=== PATIENT | male | born 1940 | race Caucasian/White ===

== ENCOUNTER → 2023-12-12 11:31 | Outpatient (REF) | payer BC, SELFPAY | LOC: HWRAD 11:31 | PROVIDERS: ATTENDING PHYSICIAN Physician Assistant Medical; FAMILY PHYSICIAN Family Medicine | DX: R10.32 Left lower quadrant pain (principal); G89.29 Other chronic pain; M54.50 Low back pain, unspecified | CPT/HCPCS: 72110; 73502 ==

== ENCOUNTER → 2024-01-31 11:10 | Outpatient (REF) | payer BC, SELFPAY ==
[2024-01-31 10:57] LABS: % Basophils 0.2 % (0-2); % Eosinophils 0.4 % (0-6); % Immature Granulocytes 0.1 % (0-0.5); % Lymphocytes 13.3 % (20.5-51.1); Absolute Lymphocytes 1.3 10^3/uL (1.2-3.4); Absolute Monocytes 0.8 10^3/uL (0.1-0.6); Absolute Neutrophils 7.4 10^3/uL (1.4-6.5); Hematocrit 33.3 % (39.0-52.0); Mean Corpuscular Hgb 28.6 pg (27.0-31.0); Mean Corpuscular Volume 86.7 fL (80.0-94.0); Mean Platelet Volume 8.9 fL (7.4-10.4); Platelet Count 374 10^3/uL (130-400); Red Blood Cell Count 3.84 10^6/uL (4.70-6.10); White Blood Cell Count 9.5 10^3/uL (4.8-10.8)
== END ==
LOC: OIDL 11:10
PROVIDERS: ATTENDING PHYSICIAN Registered Nurse
DX: D50.9 Iron deficiency anemia, unspecified (principal)
CPT/HCPCS: 85025

== ENCOUNTER → 2024-02-29 07:05 | Outpatient (REF) | payer BC, SELFPAY | LOC: MRI 07:05 | PROVIDERS: ATTENDING PHYSICIAN Physical Medicine & Rehabilitation; FAMILY PHYSICIAN Family Medicine | DX: M54.16 Radiculopathy, lumbar region (principal); M25.552 Pain in left hip | CPT/HCPCS: 72148; 73721 ==

== ENCOUNTER → 2024-05-24 11:05 | Outpatient (REF) | payer BC, SELFPAY | LOC: HWRAD 11:05 | PROVIDERS: ATTENDING PHYSICIAN Hospitalist; FAMILY PHYSICIAN Family Medicine | DX: M35.3 Polymyalgia rheumatica (principal); Z79.52 Long term (current) use of systemic steroids | CPT/HCPCS: 77080 ==

== ENCOUNTER → 2024-05-30 16:25 | Outpatient (REF) | payer BC, SELFPAY | LOC: HWRAD 16:25 | PROVIDERS: ATTENDING PHYSICIAN Hospitalist; FAMILY PHYSICIAN Family Medicine | DX: J18.9 Pneumonia, unspecified organism (principal) | CPT/HCPCS: 71046 ==

== ENCOUNTER 2024-06-03 16:24 | Inpatient (IN) | payer MEDICARE, BC, SELFPAY ==
[2024-06-03] VITALS (10 sets, daily range): BP systolic 102–154; BP diastolic 49–94; PULSE 86–94; BMI 24.0; BMI 23.0
[2024-06-03 11:36] LABS: % Basophils 0.4 % (0-2); % Eosinophils 0.8 % (0-6); % Immature Granulocytes 0.9 % (0-0.5); % Lymphocytes 5.5 % (20.5-51.1); % Monocytes 7.5 % (1.7-9.3); % Neutrophils 84.9 % (42.2-75.2); Absolute Eosinophils 0.1 10^3/uL (0-0.7); Absolute Immature Granulocytes 0.1 10^3/uL (0-0.05); Absolute Lymphocytes 0.6 10^3/uL (1.2-3.4); Absolute Monocytes 0.8 10^3/uL (0.1-0.6); Absolute Neutrophils 8.9 10^3/uL (1.4-6.5); Hematocrit 36.8 % (39.0-52.0); Hemoglobin 13.1 g/dL (13.0-18.0); Mean Corp Hgb Conc. 35.6 g/dL (33.0-37.0); Mean Corpuscular Hgb 29.8 pg (27.0-31.0); Mean Corpuscular Volume 83.6 fL (80.0-94.0); Mean Platelet Volume 9.5 fL (7.4-10.4); Nucleated Red Blood Cells % 0 % (-); Platelet Count 237 10^3/uL (130-400); Red Cell Dist. Width 15.3 % (11.5-14.5); White Blood Cell Count 10.5 10^3/uL (4.8-10.8)
[2024-06-03 11:53] LABS: Blood Urea Nitrogen 29 mg/dl (9-20); Calcium 9.3 mg/dl (8.4-10.2); Carbon Dioxide 18 mmol/L (22-30); Chloride 103 mmol/L (98-107); Glucose 194 mg/dl (70-99); Sodium 133 mmol/L (135-145); eGFR > 60.00
--- NOTE | 2024-06-03 12:12 | ED.GENMED ---
History of Present Illness
General
Chief Complaint: Breathing Problem
Time Seen by Provider: 06/03/24 11:41
History of Present Illness
History of Present Illness:
84-year-old male with history of paroxysmal atrial fibrillation and pulmonary fibrosis presents to the emergency department for evaluation of shortness of breath. He has had postnasal drip and a minimally productive cough over the past 3 weeks but
feels the symptoms are getting worse. Daughter reports that he was profoundly short of breath yesterday as well as this morning. He does have a home pulse oximeter that has been reading in the 80s. Denies any chest pain or leg swelling.
Past History
Past History
ED Past Medical History: Arrthythmia (Atrial fibrillation), HTN, Hypercholesterolemia and NIDDM
ED Past Surgical History: Other (Ablation for A. fib)
Social History
Tobacco: Non-smoker
Alcohol: None
Drug: None
Personal:
Review of Systems
Review of Systems
Allergies reviewed?: Yes
All Other Systems: ROS reviewed and negative except as documented in HPI and ROS
Phy Exam
Physical Exam
Physical Exam:
GEN: Well appearing, NAD, WDWN
Eyes: PERRLA, EOMs intact, no scleral icterus
HENT: NCAT, oral mucosa moist, no JVD, no cervical adenopathy.
Lungs: Normal respiratory effort, faint interstitial crackles at the bases bilaterally.
Cardiac: RRR, no M/R/G, no peripheral edema. Radial pulses 2+ bilat
Abdomen: S, NT, ND, NABS, no masses or hepatosplenomegaly
Neuro: AO x 3
MSK: No gross deformity or ecchymosis. No edema. No digital clubbing
Skin: No rashes, petechiae. Normal color, no pallor or jaundice.
Psych: Calm, cooperative, proper hygiene
Scores
Heart Failure Risk
Heart Failure Risk Score: Not Applicable
Course
Orders/Labs/Results
Orders:
Orders
06/03/24 11:27
Basic Metabolic Panel Urgent
Complete Blood Count/With Diff Urgent
06/03/24 12:05
CR Chest - 2 Views Urgent
Comment:
Reason For Exam: SOB/hypoxia
06/03/24 13:32
Azithromycin 500 mg/250 ml [Zithromax Infusion] 500 mg in 250 ml IV NOW
Dexamethasone Sod Phosphate [Decadron] 6 mg IV NOW STA
06/03/24 13:39
CMP [Comprehensive Metabolic Panel] Urgent
COVID-19 Antigen Urgent
Source: Nasal Swab
Procalcitonin Urgent
PCT Algorithmm Indication: Respiratory
Influenza A+B Rapid Molecular Urgent
JEWELL Source: Nasal Swab
Specimen Description:
06/03/24 13:48
Azithromycin 500 mg/250 ml [Zithromax Infusion] 500 mg in 250 ml IV NOW
06/03/24 15:41
Admit/Transfer Patient As Directed
Co-Sign Provider:
Level of Care: Inpatient admission
Assign to:: Medical/Surgical
Physician / Group: sean
Diagnosis: pneumonia
Reason for Hospitalization: pneumonia
Expected length of stay greater than two midnights?: Yes
ELOS- Estimated Length of Stay in days: 2
I certify the patient meets the requirements for IP care: Yes
06/03/24 15:42
Code Status As Directed
Resuscitation Status: Full Code
PRN Pain Medication Management As Directed
May give lesser potent ordered pain med per pt: Yes
preference::
Protocol:: Medication orders for pain may be administered in a
manner that supports deferring to patient preference
when the pt is:
- Requesting an ordered lesser potent pain medication.
Least to most potent pain medications are defined
as: acetaminophen < NSAID < tramadol < opioids
(morphine, oxycodone, hydromorphone).
- Requesting a lesser dose of the same medication IF
ORDERED.
- Requesting a less intrusive route of administration
if both routes are prescribed by the provider (PO <
IV).
06/03/24 15:45
Sputum Culture [Respiratory Culture/Gram Stain] Urgent
JEWELL Source: Sputum
Specimen Description:
06/03/24 15:46
Code Status As Directed
Resuscitation Status: Do not resuscitate
Reached after discussion with pt or family/Healthcare POA: Yes
06/03/24 15:47
DNR Bracelet Application ONCE
Abnormal Lab Results
06/03/24 06/03/24
11:27 13:39
RBC 4.40 L 10^6/uL
(4.70-6.10)
Hct 36.8 L %
(39.0-52.0)
RDW 15.3 H %
(11.5-14.5)
Abs Immat Gran (auto) 0.1 H 10^3/uL
(0-0.05)
Absolute Neuts (auto) 8.9 H 10^3/uL
(1.4-6.5)
Absolute Lymphs (auto) 0.6 L 10^3/uL
(1.2-3.4)
Absolute Monos (auto) 0.8 H 10^3/uL
(0.1-0.6)
Immature Gran % 0.9 H %
(0-0.5)
Neutrophils % 84.9 H %
(42.2-75.2)
Lymphocytes % 5.5 L %
(20.5-51.1)
Sodium 133 L mmol/L
(135-145)
Carbon Dioxide 18 L mmol/L
(22-30)
BUN 29 H mg/dl 29 H mg/dl
(9-20) (9-20)
Glucose 194 H mg/dl 181 H mg/dl
(70-99) (70-99)
Total Protein 5.3 L g/dl
(6.3-8.2)
Albumin 3.1 L g/dl
(3.5-5.0)
06/03/24 11:27
06/03/24 13:39
Vital Signs
Initial and Last Documented VS:
Initial Vital Signs
Temp Pulse BP Pulse Ox
98 F 88 129/61 89
06/03/24 11:14 06/03/24 11:14 06/03/24 11:14 06/03/24 11:14
Last Documented Vital Signs
Temp Pulse Resp BP Pulse Ox
98 F 77 17 108/49 92
06/03/24 11:14 06/03/24 15:30 06/03/24 15:30 06/03/24 15:00 06/03/24 15:30
MDM/Problems Addressed
MDM/Problems Addressed:
Chest x-ray independently interpreted by me suspicious for bilateral infiltrates that are increased compared to prior chest x-ray. This raises concern for potential atypical or viral pneumonia. He does not appear to be volume overloaded to suggest
CHF and there is no wheezing to suggest a pulmonary fibrosis exacerbation. Will start the patient on empiric IV antibiotics and admit to the hospitalist service
*Critical Care Note
Total Time (30-74mins, 75-104mins- exclusive of procedures): Not Applicable
ED Attending Note
-
Portions of this chart may have been created with voice recognition software.� Occasional wrong word or��sound alike� substitutions may have occurred due to the inherent limitations of voice recognition software.
Discharge Plan
Departure
Patient Disposition: Admit
Date of Disposition: 06/03/24
Time of Disposition: 14:30
Admit to: Med/Surg
Presentation/result/management discussed w/ accepting MD/DO: Hospitalist
Discharge Problem:
Pneumonia, Acute hypoxemic respiratory failure
Interventions
Interventions:
*Risk Screen - Suicide Last Done: 06/03/24 13:25
*General Assessment Last Done: 06/03/24 13:25
*Neglect/Abuse Screening Last Done: 06/03/24 13:25
ED- Fall Risk Assessment Last Done: 06/03/24 13:25
*ED COVID-19 Vaccine History Last Done: 06/03/24 13:25
ED- Cardiac Assessment Last Done: 06/03/24 13:25
ED- Pulmonary Assessment Last Done: 06/03/24 13:25
[2024-06-03] MEDS: DECADRON 6 MG IV (13:56)
[2024-06-03] MEDS: ZITHROMAX INFUSION 250 IV (13:58)
[2024-06-03 14:16] LABS: ALT (SGPT) 18 U/L (0-50); AST (SGOT) 27 U/L (17-59); Albumin 3.1 g/dl (3.5-5.0); Alkaline Phosphatase 56 U/L (38-126); Blood Urea Nitrogen 29 mg/dl (9-20); Calcium 9.1 mg/dl (8.4-10.2); Carbon Dioxide 23 mmol/L (22-30); Chloride 103 mmol/L (98-107); Estimated Creatinine Clearance 69 ml/min; Glucose 181 mg/dl (70-99); Potassium 4.9 mmol/L (3.5-5.1); Sodium 136 mmol/L (135-145); Total Bilirubin 0.6 mg/dl (0.2-1.3); Total Protein 5.3 g/dl (6.3-8.2); eGFR > 60.00
[2024-06-03 14:17] LABS: COVID-19 Antigen Negative (Negative)
[2024-06-03 14:33] LABS: Procalcitonin 0.06 ng/ml (0.0-0.25)
--- NOTE | 2024-06-03 15:48 | HPS.HSE ---
Family Physician
-
Family Physician: Martin Carmen
Chief Complaint
-
cough, SOB
History of Present Illness
84-year-old male past medical history of pulmonary fibrosis, paroxysmal atrial fibrillation status post ablation, hypertension, hypercholesteremia, diabetes, polymyalgia rheumatica presenting with persistent productive cough for the past 3 weeks
associate with some shortness of breath. Symptoms were particularly worse over the past 1 to 2 days. Pulse ox was 86%. He had fever of 100 in the last week but denies any chills. Denies any chest pain. Denies any nausea vomiting or diarrhea.
He is a former smoker. Denies alcohol.
Medical History
Past Medical History
Past Medical History: Reports Other (pulmonary fibrosis, paroxysmal atrial fibrillation status post ablation, hypertension, hypercholesteremia, diabetes, polymyalgia rheumatica)
Past Surgical History: Reports Other (Ablation)
Social History
Tobacco: Former Smoker
Alcohol: None
Drug: None
Family History
Family History: Not pertinent
Allergies / Home Medications
Allergies reflects when Allergies were last updated in [facility].
Home Medications with original date entered in [facility]
Allergy/Medication List:
Allergies
Allergy/AdvReac Type Severity Reaction Status Date / Time
Penicillins Allergy Unknown Verified 03/12/22 18:39
Home Medications
acetaminophen 325 mg tablet (Tylenol) 650 mg PO QIDPRN PRN fever 06/03/24
cholecalciferol (vitamin D3) 25 mcg (1,000 unit) tablet (Vitamin D3) 25 mcg PO DAILY 06/03/24
dofetilide 500 mcg capsule 500 mcg PO BID 06/03/24
famotidine 40 mg tablet (Pepcid) 40 mg PO HS 06/03/24
finasteride 5 mg tablet 5 mg PO DAILY 06/03/24
guaifenesin 600 mg tablet, extended release 12 hr (Mucinex) 600 mg PO BIDPRN PRN cough 06/03/24
lisinopril 5 mg tablet 5 mg PO BID 06/03/24
metformin 500 mg tablet 500 mg PO BID 06/03/24
omeprazole 40 mg capsule,delayed release 40 mg PO DAILY 06/03/24
polyethylene glycol 3350 17 gram oral powder packet (Miralax) 17 g PO DAILYPRN PRN constipation 06/03/24
pravastatin 40 mg tablet 40 mg PO HS 06/03/24
prednisone 10 mg tablet 12.5 mg PO DAILY 06/03/24
rivaroxaban 20 mg tablet (Xarelto) 20 mg PO QPM 06/03/24
tamsulosin 0.4 mg capsule (Flomax) 0.4 mg PO DAILY 06/03/24
trazodone 50 mg tablet 50 mg PO HS 06/03/24
Review of Systems
-
History Source: Patient
A 12 point ROS was completed and negative except as noted: Yes
Constitutional: Reports No Symptoms
EENT: Reports No Symptoms
Respiratory: Reports See HPI
Cardiac: Reports No Symptoms
Abdomen/GI: Reports No Symptoms
: Reports No Symptoms
Musculoskeletal: Reports No Symptoms
Skin: Reports No Symptoms
Neurological: Reports No Symptoms
Endocrine: Reports No Symptoms
Hematologic/Lymphatic: Reports No Symptoms
Psych: Reports No Symptoms
Physical Exam
Vital Signs
Vital Signs
Temp Pulse Resp BP Pulse Ox
98 F 96 23 119/68 93
06/03/24 11:14 06/03/24 14:00 06/03/24 14:00 06/03/24 14:00 06/03/24 13:45
Physical Exam
General: Well Developed, Well Nourished and No Apparent Distress
HEENT: NormoCephalic, Moist mucous membranes and Atraumatic
Respiratory: Clear
Cardiac: S1/S2 and Regular Rhythm; No Murmur or Rub
GI: Soft, Non Tender, Non Distended and Normal Bowel Sounds; No Organomegaly
Rectal: Deferred by Provider
Musculoskeletal: No Clubbing, No Cyanosis and No Edema
Skin: No Rash
Neuro: Nonfocal/grossly intact
Laboratory Results
-
06/03/24 11:27
06/03/24 13:39
Laboratory Results
Total Bilirubin 0.6 mg/dl (0.2-1.3) 06/03/24 13:39
AST 27 U/L (17-59) 06/03/24 13:39
ALT 18 U/L (0-50) 06/03/24 13:39
Alkaline Phosphatase 56 U/L (38-126) 06/03/24 13:39
Data Reviewed
-
Lab Data: Labs Reviewed by me
Old Records: Reviewed
Impression/Plan
-
IMPRESSION:
PLAN:
# Right basilar pneumonia
-COVID-negative
-Check sputum culture
-Ceftriaxone/doxycycline
-Continue guaifenesin
Mild pulmonary fibrosis
-Does not use oxygen at home
Paroxysmal atrial fibrillation status post ablation
-Continue dofetilide
-Continue Xarelto
Coronary artery disease
Obstructive sleep apnea
Essential hypertension
-Continue lisinopril
Hypercholesterolemia
-Continue statin
Type 2 diabetes
-Continue metformin
BPH
-Continue finasteride
Polymyalgia rheumatica
-Continue prednisone taper
Insomnia
-Continue trazodone
DNR/DNI
DVT prophylaxis�heparin
Regular diet
[2024-06-03] MEDS: XARELTO 20 MG PO (19:30)
[2024-06-03] MEDS: GLUCOPHAGE 500 MG PO (19:30)
[2024-06-03] MEDS: TIKOSYN 500 MCG PO (19:31)
[2024-06-03] MEDS: ZESTRIL 5 MG PO (19:31)
--- NOTE | 2024-06-03 20:00 | PTCARENOTE ---
Patient is on Xarelto, there is order for heparin SQ due at 1999. DAISY Lott made aware. New order to d/c heparin .
[2024-06-03] MEDS: ROCEPHIN 1000 MG IV (20:01)
[2024-06-03] MEDS: STERILE WATER FOR INJECTION 10 ML IV (20:01)
[2024-06-03] MEDS: VIBRAMYCIN 260 MG IV (20:02)
[2024-06-03 21:30] LABS: Glucose - Point of Care 265 mg/dl (70-99)
[2024-06-03] MEDS: DESYREL 50 MG PO (22:36)
[2024-06-03] MEDS: PRAVACHOL 40 MG PO (22:36)
[2024-06-03] MEDS: PEPCID 40 MG PO (22:36)
[2024-06-04] VITALS (8 sets, daily range): BP systolic 114–160; BP diastolic 68–91; PULSE 81; O2SAT 94
[2024-06-04 05:41] LABS: % Basophils 0.2 % (0-2); % Immature Granulocytes 0.7 % (0-0.5); % Lymphocytes 8.4 % (20.5-51.1); % Monocytes 7.8 % (1.7-9.3); % Neutrophils 82.9 % (42.2-75.2); Absolute Immature Granulocytes 0.1 10^3/uL (0-0.05); Absolute Lymphocytes 0.8 10^3/uL (1.2-3.4); Absolute Monocytes 0.8 10^3/uL (0.1-0.6); Absolute Neutrophils 8.2 10^3/uL (1.4-6.5); Hematocrit 34.3 % (39.0-52.0); Hemoglobin 11.6 g/dL (13.0-18.0); Mean Corp Hgb Conc. 33.8 g/dL (33.0-37.0); Mean Corpuscular Hgb 28.5 pg (27.0-31.0); Mean Corpuscular Volume 84.3 fL (80.0-94.0); Mean Platelet Volume 9.3 fL (7.4-10.4); Nucleated Red Blood Cells % 0 % (-); Platelet Count 323 10^3/uL (130-400); Red Blood Cell Count 4.07 10^6/uL (4.70-6.10); Red Cell Dist. Width 15.2 % (11.5-14.5); White Blood Cell Count 9.9 10^3/uL (4.8-10.8)
[2024-06-04 05:58] LABS: ALT (SGPT) 17 U/L (0-50); AST (SGOT) 23 U/L (17-59); Albumin 2.9 g/dl (3.5-5.0); Alkaline Phosphatase 57 U/L (38-126); Blood Urea Nitrogen 24 mg/dl (9-20); Calcium 9.3 mg/dl (8.4-10.2); Carbon Dioxide 22 mmol/L (22-30); Chloride 105 mmol/L (98-107); Estimated Creatinine Clearance 77 ml/min; Glucose 151 mg/dl (70-99); Potassium 4.7 mmol/L (3.5-5.1); Sodium 139 mmol/L (135-145); Total Bilirubin 0.4 mg/dl (0.2-1.3); Total Protein 5.2 g/dl (6.3-8.2); eGFR > 60.00
[2024-06-04] MEDS: DELTASONE 12.5 MG PO (07:16)
[2024-06-04] MEDS: FLOMAX 0.4 MG PO (07:19)
[2024-06-04] MEDS: PROTONIX 40 MG PO (07:19)
[2024-06-04] MEDS: GLUCOPHAGE 500 MG PO ×2 (07:19→17:47)
[2024-06-04] MEDS: TIKOSYN 500 MCG PO ×2 (07:20→20:23)
[2024-06-04] MEDS: VITAMIN D3 (cholecalciferol) 25 MCG PO (07:20)
[2024-06-04] MEDS: ZESTRIL 5 MG PO ×2 (07:20→20:24)
[2024-06-04] MEDS: PROSCAR 5 MG PO (07:20)
[2024-06-04] MEDS: VIBRAMYCIN 260 MG IV (08:35)
[2024-06-04 10:02] LABS: NT-proBNP 307 pg/ml
--- NOTE | 2024-06-04 11:45 | CM ---
CM met with pt and son/Jason bedside
Pt resides with his spouse in a [place] in [place] community
1STE and first floor setup
Pt is independent with his ADLs- has a quad cane and WW for use as needed
Does not have home oxygen at baseline
PCP- Martin Carmen
Rx- [facility]
Pt currently on O2
Requested PT/OT orders once appropriate
Discharge Disposition- anticipate home, watch for VN/O2 needs
--- NOTE | 2024-06-04 12:43 | W.PN.HOSP.TC ---
Today's Communication/Plan
-
Monitor vital signs see plan
Wean oxygen as tolerated
Consider CT scan if symptoms does not improve
Continue antibiotics
Follow cultures
Assessment / Plan
Assessment / Plan
General: Well Developed, Well Nourished and No Apparent Distress
HEENT: NormoCephalic, Moist mucous membranes and Atraumatic
Respiratory: Clear
Cardiac: S1/S2 and Regular Rhythm; No Murmur or Rub
GI: Soft, Non Tender, Non Distended and Normal Bowel Sounds
Musculoskeletal: No Clubbing, No Cyanosis and No Edema
Skin: No Rash
Neuro: Nonfocal/grossly intact
Right basilar pneumonia
Acute hypoxic respiratory failure likely secondary to above
-COVID-negative,flyu neg; check legionella
-Check sputum culture
-cw Ceftriaxone/doxycycline
-Continue guaifenesin
If oxygenation does not improve then will need pulmonary evaluation
Consider CT scan if does not improve
Mild pulmonary fibrosis
-Does not use oxygen at home
Paroxysmal atrial fibrillation status post ablation
-Continue dofetilide
-Continue Xarelto
Coronary artery disease
Obstructive sleep apnea
Essential hypertension
-Continue lisinopril
Hypercholesterolemia
-Continue statin
Type 2 diabetes
-Continue metformin
BPH
-Continue finasteride
Polymyalgia rheumatica
-Continue prednisone taper
Insomnia
-Continue trazodone
DNR/DNI
DVT prophylaxis�heparin
Anticipated Discharge: 24 - 48 hours
Subjective/Interval History
-
Date of Service: June 04, 2024
denies pain
Objective Data
-
Labs:
Laboratory Results
06/04/24
05:16
WBC 9.9
Hgb 11.6 L
Hct 34.3 L
Plt Count 323 D
Sodium 139
Potassium 4.7
Chloride 105
Carbon Dioxide 22
BUN 24 H
Creatinine 0.8
Glucose 151 H
Calcium 9.3
Total Bilirubin 0.4
AST 23
ALT 17
Alkaline Phosphatase 57
Vital Signs:
Vital Signs
Temp Pulse Resp BP Pulse Ox
97.5 F 83 16 127/68 93
06/04/24 11:11 06/04/24 11:11 06/04/24 11:11 06/04/24 11:11 06/04/24 11:11
I&O
06/03/24 06/04/24 06/05/24
06:59 06:59 06:59
Intake Total 730 / 730
Output Total 1100 / 1100
Balance -370 / -370
[2024-06-04] MEDS: XARELTO 20 MG PO (17:47)
[2024-06-04] MEDS: VIBRAMYCIN 100 MG PO (20:24)
[2024-06-04] MEDS: STERILE WATER FOR INJECTION 10 ML IV (20:24)
[2024-06-04] MEDS: ROCEPHIN 1000 MG IV (20:24)
[2024-06-04] MEDS: PRAVACHOL 40 MG PO (22:21)
[2024-06-04] MEDS: DESYREL 50 MG PO (22:21)
[2024-06-04] MEDS: PEPCID 40 MG PO (22:22)
[2024-06-05] VITALS (7 sets, daily range): BP systolic 115–162; BP diastolic 61–88; PULSE 84; O2SAT 94
[2024-06-05 05:36] LABS: % Basophils 0.3 % (0-2); % Eosinophils 1.7 % (0-6); % Immature Granulocytes 0.4 % (0-0.5); % Lymphocytes 13.7 % (20.5-51.1); % Monocytes 9.2 % (1.7-9.3); % Neutrophils 74.7 % (42.2-75.2); Absolute Eosinophils 0.2 10^3/uL (0-0.7); Absolute Immature Granulocytes 0.1 10^3/uL (0-0.05); Absolute Lymphocytes 1.6 10^3/uL (1.2-3.4); Absolute Monocytes 1.1 10^3/uL (0.1-0.6); Absolute Neutrophils 8.6 10^3/uL (1.4-6.5); Hematocrit 36.6 % (39.0-52.0); Hemoglobin 12.2 g/dL (13.0-18.0); Mean Corp Hgb Conc. 33.3 g/dL (33.0-37.0); Mean Corpuscular Hgb 29.5 pg (27.0-31.0); Mean Corpuscular Volume 88.4 fL (80.0-94.0); Nucleated Red Blood Cells % 0 % (-); Platelet Count 335 10^3/uL (130-400); Red Blood Cell Count 4.14 10^6/uL (4.70-6.10); Red Cell Dist. Width 15.2 % (11.5-14.5); White Blood Cell Count 11.5 10^3/uL (4.8-10.8)
[2024-06-05 06:49] LABS: Blood Urea Nitrogen 25 mg/dl (9-20); Calcium 9.5 mg/dl (8.4-10.2); Carbon Dioxide 25 mmol/L (22-30); Chloride 102 mmol/L (98-107); Estimated Creatinine Clearance 69 ml/min; Glucose 122 mg/dl (70-99); Potassium 4.4 mmol/L (3.5-5.1); Sodium 140 mmol/L (135-145); eGFR > 60.00
[2024-06-05] MEDS: PROTONIX 40 MG PO (07:47)
[2024-06-05] MEDS: FLOMAX 0.4 MG PO (07:47)
[2024-06-05] MEDS: VITAMIN D3 (cholecalciferol) 25 MCG PO (07:48)
[2024-06-05] MEDS: PROSCAR 5 MG PO (07:48)
[2024-06-05] MEDS: ZESTRIL 5 MG PO ×2 (07:48→20:48)
[2024-06-05] MEDS: TIKOSYN 500 MCG PO ×2 (07:48→20:47)
[2024-06-05] MEDS: DELTASONE 12.5 MG PO (07:49)
[2024-06-05] MEDS: VIBRAMYCIN 100 MG PO ×2 (07:49→20:47)
[2024-06-05] MEDS: GLUCOPHAGE 500 MG PO ×2 (07:50→17:10)
--- NOTE | 2024-06-05 11:44 | W.PN.HOSP.TC ---
Today's Communication/Plan
-
Monitor vital signs
see plan
Continue antibiotics
Check CT chest
Wean oxygen as tolerated
Assessment / Plan
Assessment / Plan
General: Well Developed, Well Nourished and No Apparent Distress
HEENT: NormoCephalic, Moist mucous membranes and Atraumatic
Respiratory: Clear
Cardiac: S1/S2 and Regular Rhythm; No Murmur or Rub
GI: Soft, Non Tender, Non Distended and Normal Bowel Sounds
Musculoskeletal: No Clubbing, No Cyanosis and No Edema
Skin: No Rash
Neuro: Nonfocal/grossly intact
Right basilar pneumonia
Acute hypoxic respiratory failure likely secondary to above
-COVID-negative,flyu neg; c legionella neg
-Check sputum culture
-cw Ceftriaxone/doxycycline
-Continue guaifenesin
If oxygenation does not improve then will need pulmonary evaluation
check CT chest
per patient hx of extensive smoking however no diagnosis of COPD
Mild pulmonary fibrosis
-Does not use oxygen at home
Paroxysmal atrial fibrillation status post ablation
-Continue dofetilide
-Continue Xarelto
Coronary artery disease
Obstructive sleep apnea
Essential hypertension
-Continue lisinopril
Hypercholesterolemia
-Continue statin
Type 2 diabetes
-Continue metformin
BPH
-Continue finasteride
Polymyalgia rheumatica
-Continue prednisone taper
Insomnia
-Continue trazodone
DNR/DNI
DVT prophylaxis�xarelto
I spent a total of 52 minutes with the patient or on the floor. More than 50% of this time involved counseling and coordination of care.
Anticipated Discharge: > 48 hours
Subjective/Interval History
-
Date of Service: June 05, 2024
still hypoxic
Objective Data
-
Labs:
Laboratory Results
06/05/24
05:22
WBC 11.5 H
Hgb 12.2 L
Hct 36.6 L
Plt Count 335
Sodium 140
Potassium 4.4
Chloride 102
Carbon Dioxide 25
BUN 25 H
Creatinine 0.9
Glucose 122 H
Calcium 9.5
Vital Signs:
Vital Signs
Temp Pulse Resp BP Pulse Ox
98.9 F 86 16 150/75 94
06/05/24 11:40 06/05/24 11:40 06/05/24 11:40 06/05/24 11:40 06/05/24 11:40
I&O
06/04/24 06/05/24 06/06/24
06:59 06:59 06:59
Intake Total 730 / 730 1500 / 1500
Output Total 1100 / 1100 800 / 800
Balance -370 / -370 700 / 700
--- NOTE | 2024-06-05 12:05 | PTOTSP ---
pt currently demonstrates ability to complete simple ADLs, functional transfers, ambulation with supervision to no assistance. pt currently requires 4LO2. education provided regarding energy conservation techniques, pt verbalized understanding. will
defer to PT for balance training and ambulation. no acute OT needs identified, will sign off.
[2024-06-05] MEDS: XARELTO 20 MG PO (17:10)
[2024-06-05] MEDS: MIRALAX 17 GRAMS PO (17:12)
[2024-06-05] MEDS: ROCEPHIN 1000 MG IV (20:47)
[2024-06-05] MEDS: STERILE WATER FOR INJECTION 10 ML IV (20:47)
[2024-06-05] MEDS: PEPCID 40 MG PO (21:58)
[2024-06-05] MEDS: PRAVACHOL 40 MG PO (21:58)
[2024-06-05] MEDS: MUCINEX 600 MG PO (21:59)
[2024-06-05] MEDS: DESYREL 50 MG PO (21:59)
[2024-06-06] VITALS (7 sets, daily range): BP systolic 121–147; BP diastolic 53–79; PULSE 90; O2SAT 94
[2024-06-06 05:39] LABS: % Basophils 0.3 % (0-2); % Eosinophils 2.4 % (0-6); % Immature Granulocytes 0.5 % (0-0.5); % Lymphocytes 12.3 % (20.5-51.1); % Monocytes 10.3 % (1.7-9.3); % Neutrophils 74.2 % (42.2-75.2); Absolute Eosinophils 0.3 10^3/uL (0-0.7); Absolute Immature Granulocytes 0.1 10^3/uL (0-0.05); Absolute Lymphocytes 1.3 10^3/uL (1.2-3.4); Absolute Monocytes 1.1 10^3/uL (0.1-0.6); Absolute Neutrophils 8.1 10^3/uL (1.4-6.5); Hematocrit 36.5 % (39.0-52.0); Mean Corp Hgb Conc. 32.9 g/dL (33.0-37.0); Mean Corpuscular Hgb 28.8 pg (27.0-31.0); Mean Corpuscular Volume 87.7 fL (80.0-94.0); Mean Platelet Volume 8.8 fL (7.4-10.4); Nucleated Red Blood Cells % 0 % (-); Platelet Count 336 10^3/uL (130-400); Red Blood Cell Count 4.16 10^6/uL (4.70-6.10); Red Cell Dist. Width 15.1 % (11.5-14.5); White Blood Cell Count 10.9 10^3/uL (4.8-10.8)
[2024-06-06 06:08] LABS: Blood Urea Nitrogen 24 mg/dl (9-20); Calcium 9.3 mg/dl (8.4-10.2); Carbon Dioxide 28 mmol/L (22-30); Chloride 101 mmol/L (98-107); Estimated Creatinine Clearance 69 ml/min; Glucose 138 mg/dl (70-99); Potassium 4.3 mmol/L (3.5-5.1); Sodium 137 mmol/L (135-145); eGFR > 60.00
[2024-06-06] MEDS: ZESTRIL 5 MG PO ×2 (07:56→19:50)
[2024-06-06] MEDS: VIBRAMYCIN 100 MG PO ×2 (07:56→19:49)
[2024-06-06] MEDS: TIKOSYN 500 MCG PO ×2 (07:56→19:49)
[2024-06-06] MEDS: PROTONIX 40 MG PO (07:56)
[2024-06-06] MEDS: FLOMAX 0.4 MG PO (07:56)
[2024-06-06] MEDS: PROSCAR 5 MG PO (07:56)
[2024-06-06] MEDS: GLUCOPHAGE 500 MG PO ×2 (07:57→17:43)
[2024-06-06] MEDS: DELTASONE 12.5 MG PO (07:57)
[2024-06-06] MEDS: VITAMIN D3 (cholecalciferol) 25 MCG PO (07:57)
--- NOTE | 2024-06-06 11:48 | W.PN.HOSP.TC ---
Today's Communication/Plan
-
Monitor vital signs see plan
Start IV steroids
Pulmonary evaluation
Spouse updated over the phone
Wean oxygen as tolerated
Assessment / Plan
Assessment / Plan
General: Well Developed, Well Nourished and No Apparent Distress
HEENT: NormoCephalic, Moist mucous membranes and Atraumatic
Respiratory: Clear
Cardiac: S1/S2 and Regular Rhythm; No Murmur or Rub
GI: Soft, Non Tender, Non Distended and Normal Bowel Sounds
Musculoskeletal: No Clubbing, No Cyanosis and No Edema
Skin: No Rash
Neuro: Nonfocal/grossly intact
Right basilar pneumonia
Acute hypoxic respiratory failure likely secondary to above
-COVID-negative,flyu neg; c legionella neg
-Check sputum culture
-cw Ceftriaxone/doxycycline
-Continue guaifenesin
If oxygenation does not improve then will need pulmonary evaluation
check CT chest without PE, does have some mild changes of paraseptal emphysema. 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 Still on 3 to 4 L. Will
start IV steroids. Chronically on prednisone for PMR. Pulmonary evaluation
per patient hx of extensive smoking however no diagnosis of COPD
Mild pulmonary fibrosis
-Does not use oxygen at home
Paroxysmal atrial fibrillation status post ablation
-Continue dofetilide
-Continue Xarelto
Coronary artery disease
Obstructive sleep apnea
Essential hypertension
-Continue lisinopril
Hypercholesterolemia
-Continue statin
Type 2 diabetes
-Continue metformin
BPH
-Continue finasteride
Polymyalgia rheumatica
-Hold oral prednisone until on IV steroids
Insomnia
-Continue trazodone
DNR/DNI
DVT prophylaxis�xarelto
I spent a total of 51 minutes with the patient or on the floor. More than 50% of this time involved counseling and coordination of care.
Anticipated Discharge: > 48 hours
Subjective/Interval History
-
Date of Service: June 06, 2024
Denies chest pain
Objective Data
-
Labs:
Laboratory Results
06/06/24
05:26
WBC 10.9 H
Hgb 12.0 L
Hct 36.5 L
Plt Count 336
Sodium 137
Potassium 4.3
Chloride 101
Carbon Dioxide 28
BUN 24 H
Creatinine 0.9
Glucose 138 H
Calcium 9.3
Vital Signs:
Vital Signs
Temp Pulse Resp BP Pulse Ox
97.8 F 82 16 128/70 93
06/06/24 11:19 06/06/24 11:19 06/06/24 11:19 06/06/24 11:19 06/06/24 11:19
I&O
06/05/24 06/06/24 06/07/24
06:59 06:59 06:59
Intake Total 1500 / 1500 1560 / 1560
Output Total 800 / 800 400 / 400
Balance 700 / 700 1160 / 1160
--- NOTE | 2024-06-06 11:55 | CM ---
CM continues to follow for discharge planning needs. Ramirez is currently on 3-4L O2; at baseline he had not been on oxygen at home. IV steroids being started today.
CM to follow to watch O2 needs at discharge. VN recommended by physical therapy.
Plan: Discharge to home with spouse; watch for VN and O2 needs at discharge.
[2024-06-06] MEDS: DECADRON 4 MG IV ×2 (13:22→22:05)
[2024-06-06] MEDS: XARELTO 20 MG PO (17:43)
[2024-06-06] MEDS: STERILE WATER FOR INJECTION 10 ML IV (19:51)
[2024-06-06] MEDS: ROCEPHIN 1000 MG IV (19:51)
[2024-06-06] MEDS: DESYREL 50 MG PO (22:06)
[2024-06-06] MEDS: PRAVACHOL 40 MG PO (22:06)
[2024-06-06] MEDS: PEPCID 40 MG PO (22:06)
[2024-06-07 02:44] VITALS: BP 135/70
[2024-06-07] MEDS: DECADRON 4 MG IV ×3 (04:45→21:12)
[2024-06-07 06:12] LABS: % Basophils 0.1 % (0-2); % Immature Granulocytes 0.4 % (0-0.5); % Lymphocytes 7.3 % (20.5-51.1); % Monocytes 4.1 % (1.7-9.3); % Neutrophils 88.1 % (42.2-75.2); Absolute Lymphocytes 0.8 10^3/uL (1.2-3.4); Absolute Monocytes 0.5 10^3/uL (0.1-0.6); Hematocrit 34.8 % (39.0-52.0); Hemoglobin 11.5 g/dL (13.0-18.0); Mean Corpuscular Hgb 27.8 pg (27.0-31.0); Mean Corpuscular Volume 84.3 fL (80.0-94.0); Mean Platelet Volume 9.2 fL (7.4-10.4); Nucleated Red Blood Cells % 0 % (-); Platelet Count 368 10^3/uL (130-400); Red Blood Cell Count 4.13 10^6/uL (4.70-6.10); Red Cell Dist. Width 14.9 % (11.5-14.5); White Blood Cell Count 11.3 10^3/uL (4.8-10.8)
[2024-06-07 06:17] LABS: Blood Urea Nitrogen 28 mg/dl (9-20); Calcium 9.3 mg/dl (8.4-10.2); Carbon Dioxide 26 mmol/L (22-30); Chloride 101 mmol/L (98-107); Estimated Creatinine Clearance 69 ml/min; Glucose 223 mg/dl (70-99); Sodium 137 mmol/L (135-145); eGFR > 60.00
[2024-06-07 07:27] VITALS: BP 137/78
[2024-06-07] MEDS: VITAMIN D3 (cholecalciferol) 25 MCG PO (07:55)
[2024-06-07] MEDS: GLUCOPHAGE 500 MG PO ×2 (07:55→17:07)
[2024-06-07] MEDS: TIKOSYN 500 MCG PO ×2 (07:55→21:13)
[2024-06-07] MEDS: PROSCAR 5 MG PO (07:55)
[2024-06-07] MEDS: VIBRAMYCIN 100 MG PO ×2 (07:55→21:13)
[2024-06-07] MEDS: FLOMAX 0.4 MG PO (07:55)
[2024-06-07] MEDS: ZESTRIL 5 MG PO ×2 (07:56→21:13)
[2024-06-07] MEDS: PROTONIX 40 MG PO (07:56)
[2024-06-07] MEDS: MIRALAX 17 GRAMS PO (08:03)
--- NOTE | 2024-06-07 09:10 | CON.PUL ---
Consultation
Consultation Request
Date/Time Consultation Requested: 06/07/24
Date/Time Consultation Performed: 06/07/24
Performing Provider: Jeannette
Reason for Consultation: Hypoxemia, abnl CT
Medical History
-
History of Present Illness:
Patient is a 84-year-old male past medical history of severe FRANCISCO, ILD, paroxysmal atrial fibrillation status post ablation, hypertension, hypercholesteremia, diabetes, polymyalgia rheumatica presenting with persistent productive cough for the past 3
weeks associate with some shortness of breath. Symptoms were particularly worse over the past 1 to 2 days. Pulse ox was 86% on arrival. He had fever of 100 in the last week but denies any chills. at bedside notes that he has been
coughing/choking with good intake more so recently. Has not been compliant wt CPAP despite mask arrangements and fittings.
Prelim CXR read showing possible PNA.
CT chest obtained showing progression of ILD into findings more consistent with UIP/IPF. He is placed on 4L NC which is new for him.
Past Medical History
Past Medical History: Other (see list below)
Social History
Tobacco: Former Smoker
Alcohol: None
Drug: None
Family History
Family History: Reviewed & Not Pertinent
Allergies / Home Medications
Allergies
Allergy/AdvReac Type Severity Reaction Status Date / Time
Penicillins Allergy Unknown Verified 03/12/22 18:39
Home Medications
�Medication �Instructions �Recorded �Confirmed �Last Taken �Type
acetaminophen 325 mg tablet 650 mg PO QIDPRN PRN fever 06/03/24 06/03/24 06/03/24 History
(Tylenol)
cholecalciferol (vitamin D3) 25 25 mcg PO DAILY Supplement 06/03/24 06/03/24 06/03/24 History
mcg (1,000 unit) tablet (Vitamin
D3)
dofetilide 500 mcg capsule 500 mcg PO BID Arrhythmia 06/03/24 06/03/24 06/03/24 History
famotidine 40 mg tablet (Pepcid) 40 mg PO HS Gastrointestinal Issue 06/03/24 06/03/24 06/02/24 History
finasteride 5 mg tablet 5 mg PO DAILY Urinary Issue 06/03/24 06/03/24 06/03/24 History
guaifenesin 600 mg tablet, 600 mg PO BIDPRN PRN cough 06/03/24 06/03/24 06/03/24 History
extended release 12 hr (Mucinex)
lisinopril 5 mg tablet 5 mg PO BID Blood Pressure 06/03/24 06/03/24 06/03/24 History
metformin 500 mg tablet 500 mg PO BID Diabetes 06/03/24 06/03/24 06/03/24 History
omeprazole 40 mg capsule,delayed 40 mg PO DAILY Gastrointestinal 06/03/24 06/03/24 06/03/24 History
release Issue
polyethylene glycol 3350 17 gram 17 g PO DAILYPRN PRN constipation 06/03/24 06/03/24 05/31/24 History
oral powder packet (Miralax)
pravastatin 40 mg tablet 40 mg PO HS High Cholesterol 06/03/24 06/03/24 06/02/24 History
prednisone 10 mg tablet 12.5 mg PO DAILY Anti-Inflammatory 06/03/24 06/03/24 06/03/24 History
rivaroxaban 20 mg tablet (Xarelto) 20 mg PO QPM Blood Clot 06/03/24 06/03/24 06/02/24 History
Prevention/Tx
tamsulosin 0.4 mg capsule (Flomax) 0.4 mg PO DAILY Urinary Issue 06/03/24 06/03/24 06/03/24 History
trazodone 50 mg tablet 50 mg PO HS Depression/sleep 06/03/24 06/03/24 06/02/24 History
Review of Systems
-
History Source: Patient
All other systems: Negative unless noted
Vitals / Labs / Diagnostic Testing
Vital Signs
Temp Pulse Resp BP Pulse Ox
97.8 F 89 16 137/78 91
06/07/24 07:27 06/07/24 07:27 06/07/24 07:27 06/07/24 07:56 06/07/24 07:27
Lab Data
06/07/24 05:20
06/07/24 05:20
Microbiology
06/04/24 23:55 Urine Legionella Urinary Antigen - Final
Negative for Legionella pneumophila Serogroup 1 antigen.
A negative result does not rule out the possiblity of
Legionella infection due to other serogroups or species of
Legionella. Clinical correlation is recommended.
Diagnostic Testing:
Physical Exam
-
HEENT: Normocephalic, Anicteric and Moist Mucous Membranes
Cardiovascular: S1/S2 and Regular Rhythm
Respiratory: Rales and Non-Labored Respirations
GI: Soft, Non Distended and Non Tender
Neurology: Awake, Alert, Oriented, AO x 3 and No Motor Deficits
Skin: Warm, Dry and Good Color
General: Comfortable and Other (NAD)
Assessment
-
Patient is a 84-year-old male past medical history of severe FRANCISCO, ILD, paroxysmal atrial fibrillation status post ablation, hypertension, hypercholesteremia, diabetes, polymyalgia rheumatica presenting with persistent productive cough for the past 3
weeks associate with some shortness of breath. Symptoms were particularly worse over the past 1 to 2 days. Pulse ox was 86% on arrival. He had fever of 100 in the last week but denies any chills. at bedside notes that he has been
coughing/choking with good intake more so recently. CT showing worsening ILD findings, we are consulted for eval.
Acute hypoxic respiratory failure
Progression of ILD, now more consistent with UIP/IPF
Acute on chronic SOB
Chronic cough
r/o aspiration, chokes on food
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
Severe FRANCISCO (AHI 77) on CPAP 14, noncompliant
ILD/Bronchiectasis/Emphysema
Follows with Dr Machado
Mild on CT with areas of bronchiectasis and emphysema
CT 2021 does not meet diagnostic criteria of UIP/IPF pattern
Prior spirometry showing normal pretest and mild obstruction post
A fib s/p ablation 2020
Type 2 DM
Hypertension
Hyperlipidemia
Morrison's esophagus
Anemic
Pneumonia
Ulcers
History of UTI
Shingles
B/L SI TFESI NO SED 03/14/24
Plan
Hypoxemia noted on arrival, now on 4L NC
This is new for patient
Will repeat terri and obtain 6MWT to assess likely new baselines
Prior history of lung disease is noted including mild ILD, severe FRANCISCO
Has not been compliant wtih CPAP despite mask arrangements and fittings
Prelim CXR read showing possible PNA
CT chest obtained showing progression of ILD into findings more consistent with UIP/IPF
We discussed pathophysiology of IPF and treatment as an outpatient
Procalcitonin and proBNP are negative on admission
Will obtain echocardiogram for evaluation of pulmonary pressures
Agree with IV steroids, will need to transition to prednisone when improving
notes that he has had some degree of choking, aspiration of food
Recurrent aspiration and poorly controlled reflux are contributors to IPF
Speech therapy consult obtained
Will need outpatient pulmonary evaluation in our office for PFTs and 6MWT
Reviewed with patient
We will follow
Diagnostic Data
Chest X-Ray:
CT Scan: CT Chest 06/05/24- Comparing to CT of the chest from May 06, 2022, there has been significant interval increase in reticular and groundglass opacities throughout both lungs, and this very likely represents bilateral interstitial and
groundglass pneumonitis, which is superimposed upon overall mild to moderate changes of interstitial fibrosis. There is no evidence for significant pleural effusion or pericardial effusion.
Mild changes of paraseptal emphysema in the right upper lung.
05/06/22- LUNGS: Bilaterally, there are abnormal peripheral reticular opacities. Most pronounced at the lateral aspect of the right upper lobe, within the lingula, and at the posterior base of the right lower lobe. There is no associated
honeycombing. There is minimal associated cylindrical bronchiectasis most notable at the right lower lobe. There are some superimposed mild emphysematous changes in the right upper lobe. Lung volumes are slightly low. No areas of dense airspace
consolidation. Small amount of groundglass opacity along the lateral aspect of the left base (image #42 series 2). No pulmonary mass lesion. No suspicious nodules identified. No tracheal or endobronchial filling defects.
Echo:
PFT's:
Reports and relevant images were personally reviewed.
Total time spent on this consultation __79__ includes review of history, physical exam, medications, laboratory data, personal review of imaging, extensive review of outpatient records, discussion with care team and respiratory therapy.
[2024-06-07 11:18] VITALS: BP 133/68
--- NOTE | 2024-06-07 11:50 | CM ---
CM following re: discharge planning.
Reviewed pt's chart, met with pt.
Pt continue to require 4L NC of O2, continue supportive care. Pt does not has supplemental home Oxygen.
PT and OT have been recommending home PT/OT. Pt is aware, expressed his agreement. A list of VN vendors provided, pt preferred [facility]. A referral to [facility] made.
D/C plan: home with [facility] and family support.
CM will follow with discharge plan updates as hospitalization progresses
--- NOTE | 2024-06-07 12:04 | PN.CDI ---
CDI
- -
CDI:
Physician Documentation Request
Admit Date: 06/03/24 16:24
Dear Doctor Villa,
Please review the following and provide your response in the progress notes.
Clinical Indicators:
PN, 06/06
#Right basilar pneumonia
#Acute hypoxic respiratory failure likely secondary to above
#...CT chest without PE, does have some mild changes of paraseptal emphysema.
#...Findings highly suggestive of bilateral interstitial and
#...groundglass pneumonitis superimposed on background changes of interstitial fibrosis. #Still on 3 to 4 L.
#Will start IV steroids.
#...Chronically on prednisone for PMR.
#...per patient hx of extensive smoking however no diagnosis of COPD
#Mild pulmonary fibrosis
#...-Does not use oxygen at home
Laboratory Tests
06/03/24 06/04/24 06/05/24
11:27 05:16 05:22
WBC 10.5 9.9 11.5 H
06/06/24 06/07/24
05:26 05:20
WBC 10.9 H 11.3 H
Based on the above, please clarify in the Progress Notes further specificity regarding the known, suspected or likely type of pneumonia you are treating (recognizing the specific organism may not be known)?
Bacterial Pneumonia
Interstitial Pneumonia
Other type
Use of terms such as suspected, likely, concern for, or probable (associated with a specific diagnosis that is being evaluated, monitored, or treated as if it exists) are acceptable and can be coded in the inpatient setting, when documented at the
time of discharge.
Thank you,
Margo iDop RN BSN CCDS
CDI Specialist
please contact via tiger text
Please use your independent medical judgment in providing your response.
--- NOTE | 2024-06-07 12:17 | W.PN.HOSP.TC ---
Today's Communication/Plan
-
Monitor vitals
See plan
Pulmonary to see
Continue with IV steroids
cw abx for now
Wean oxygen as tolerated
Spouse updated at bedside
Assessment / Plan
Assessment / Plan
General: Well Developed, Well Nourished and No Apparent Distress
HEENT: NormoCephalic, Moist mucous membranes and Atraumatic
Respiratory: Clear
Cardiac: S1/S2 and Regular Rhythm; No Murmur or Rub
GI: Soft, Non Tender, Non Distended and Normal Bowel Sounds
Musculoskeletal: No Clubbing, No Cyanosis and No Edema
Skin: No Rash
Neuro: Nonfocal/grossly intact
Right basilar pneumonia
Acute hypoxic respiratory failure likely secondary to above
-COVID-negative,flyu neg; c legionella neg
-Check sputum culture, unable to produce
-cw Ceftriaxone/doxycycline
-Continue guaifenesin
Pulmonary evaluation
check CT chest without PE, does have some mild changes of paraseptal emphysema. 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 Still on 3 to 4 L. cw IV
steroids. Chronically on prednisone for PMR. Pulmonary evaluation
per patient hx of extensive smoking however no diagnosis of COPD
Mild pulmonary fibrosis
-Does not use oxygen at home
Paroxysmal atrial fibrillation status post ablation
-Continue dofetilide
-Continue Xarelto
Coronary artery disease
Obstructive sleep apnea
Essential hypertension
-Continue lisinopril
Hypercholesterolemia
-Continue statin
Type 2 diabetes
-Continue metformin
accuchecks; LDSS
BPH
-Continue finasteride
Polymyalgia rheumatica
-Hold oral prednisone until on IV steroids
Insomnia
-Continue trazodone
DNR/DNI
DVT prophylaxis�xarelto
Anticipated Discharge: 24 - 48 hours
Subjective/Interval History
-
Date of Service: June 07, 2024
Denies chest pain
Objective Data
-
Labs:
Laboratory Results
06/07/24
05:20
WBC 11.3 H
Hgb 11.5 L
Hct 34.8 L
Plt Count 368
Sodium 137
Potassium 5.0
Chloride 101
Carbon Dioxide 26
BUN 28 H
Creatinine 0.9
Glucose 223 H
Calcium 9.3
Vital Signs:
Vital Signs
Temp Pulse Resp BP Pulse Ox
97.5 F 79 17 133/68 96
06/07/24 11:18 06/07/24 11:18 06/07/24 11:18 06/07/24 11:18 06/07/24 11:18
I&O
06/06/24 06/07/24 06/08/24
06:59 06:59 06:59
Intake Total 1560 / 1560 1200 / 1200 480 / 480
Output Total 400 / 400 500 / 500
Balance 1160 / 1160 700 / 700 480 / 480
[2024-06-07 12:54] LABS: Glucose - Point of Care 176 mg/dl (70-99)
--- NOTE | 2024-06-07 14:46 | VNURNOTE ---
Home Health Liaison met with patient and Gisselle at bedside to discuss [facility] nurse/therapy, visits, schedule and homebound status. Patient is agreeable and understands that visits at home will be 2-3 x per week to assess and teach medical
management. Watching for 02 needs.
[facility] brochure provided with contact information. Patient is aware that [facility] will contact them for start of care in 1-2 days after discharge from .
[facility] referral completed in [facility].
[2024-06-07 16:07] VITALS: BP 124/60
[2024-06-07 17:01] LABS: Glucose - Point of Care 209 mg/dl (70-99)
[2024-06-07] MEDS: XARELTO 20 MG PO (17:07)
[2024-06-07] MEDS: NOVOLOG FLEXPEN-LOW RESISTANCE 2 UNITS SC (17:53)
[2024-06-07 19:30] VITALS: BP 146/103
[2024-06-07] MEDS: STERILE WATER FOR INJECTION 10 ML IV (21:12)
[2024-06-07] MEDS: ROCEPHIN 1000 MG IV (21:12)
[2024-06-07] MEDS: PRAVACHOL 40 MG PO (21:13)
[2024-06-07] MEDS: PEPCID 40 MG PO (21:14)
[2024-06-07] MEDS: DESYREL 50 MG PO (21:14)
[2024-06-07 21:32] LABS: Glucose - Point of Care 242 mg/dl (70-99)
[2024-06-07 23:45] VITALS: BP 117/67
[2024-06-08] VITALS (7 sets, daily range): BP systolic 113–156; BP diastolic 56–80; PULSE 88; O2SAT 97
--- NOTE | 2024-06-08 03:48 | W.PN.UPDATE ---
Update Note
Progress Note Update
Responded to code purple..found patient and multiple staff members in hallway...directed back to his bed with much encouragement. Disoriented to where he is.
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
[2024-06-08 04:30] LABS: Glucose - Point of Care 213 mg/dl (70-99)
[2024-06-08 04:44] LABS: B.E. 1.9 mmol/L; HCO3 26.6 mmol/L (21-28); O2 Saturation % 99.2 % (94-98); PCO2 41 mmHg (35-48); PO2 103 mmHg (83-108); pH 7.42 (7.35-7.45)
[2024-06-08] MEDS: DECADRON 4 MG IV ×2 (05:03→13:10)
[2024-06-08 06:25] LABS: % Basophils 0.1 % (0-2); % Eosinophils 0.1 % (0-6); % Immature Granulocytes 0.5 % (0-0.5); % Lymphocytes 6.2 % (20.5-51.1); % Monocytes 5.7 % (1.7-9.3); % Neutrophils 87.4 % (42.2-75.2); Absolute Immature Granulocytes 0.1 10^3/uL (0-0.05); Absolute Lymphocytes 0.8 10^3/uL (1.2-3.4); Absolute Monocytes 0.8 10^3/uL (0.1-0.6); Absolute Neutrophils 11.9 10^3/uL (1.4-6.5); Hematocrit 36.3 % (39.0-52.0); Hemoglobin 12.5 g/dL (13.0-18.0); Mean Corp Hgb Conc. 34.4 g/dL (33.0-37.0); Mean Corpuscular Hgb 29.2 pg (27.0-31.0); Mean Corpuscular Volume 84.8 fL (80.0-94.0); Mean Platelet Volume 9.3 fL (7.4-10.4); Nucleated Red Blood Cells % 0.1 % (-); Platelet Count 386 10^3/uL (130-400); Red Blood Cell Count 4.28 10^6/uL (4.70-6.10); White Blood Cell Count 13.6 10^3/uL (4.8-10.8)
[2024-06-08 07:40] LABS: Glucose - Point of Care 242 mg/dl (70-99)
[2024-06-08] MEDS: GLUCOPHAGE 500 MG PO ×2 (07:46→18:09)
[2024-06-08] MEDS: FLOMAX 0.4 MG PO (07:46)
[2024-06-08] MEDS: TIKOSYN 500 MCG PO ×2 (07:46→20:41)
[2024-06-08] MEDS: PROTONIX 40 MG PO (07:46)
[2024-06-08] MEDS: VIBRAMYCIN 100 MG PO ×2 (07:46→20:41)
[2024-06-08] MEDS: ZESTRIL 5 MG PO ×2 (07:46→20:41)
[2024-06-08] MEDS: VITAMIN D3 (cholecalciferol) 25 MCG PO (07:46)
[2024-06-08] MEDS: PROSCAR 5 MG PO (07:46)
[2024-06-08 08:00] LABS: Blood Urea Nitrogen 36 mg/dl (9-20); Calcium 9.9 mg/dl (8.4-10.2); Carbon Dioxide 27 mmol/L (22-30); Chloride 100 mmol/L (98-107); Estimated Creatinine Clearance 62 ml/min; Glucose 223 mg/dl (70-99); Potassium 4.8 mmol/L (3.5-5.1); Sodium 137 mmol/L (135-145); eGFR > 60.00
[2024-06-08] MEDS: NOVOLOG FLEXPEN-LOW RESISTANCE 2 UNITS SC ×2 (08:54→18:09)
--- NOTE | 2024-06-08 08:56 | W.PN.PUL3 ---
Today's Communication / Plan
-
Reviewed spirometry, declined from prior--will add symbicort/proair to continue at home
6MWT reviewed showing need for 2L set up at home, 4L with exertion
Transition IV steroids to PO, taper back to home dose
Resume CPAP at home
OP pulm FU recommended at discharge
PT/OT
Assessment
-
Patient is a 84-year-old male past medical history of severe FRANCISCO, ILD, paroxysmal atrial fibrillation status post ablation, hypertension, hypercholesteremia, diabetes, polymyalgia rheumatica presenting with persistent productive cough for the past 3
weeks associate with some shortness of breath. Symptoms were particularly worse over the past 1 to 2 days. Pulse ox was 86% on arrival. He had fever of 100 in the last week but denies any chills. at bedside notes that he has been
coughing/choking with good intake more so recently. CT showing worsening ILD findings, we are consulted for bonifacio.
Acute hypoxic respiratory failure
Progression of ILD, now more consistent with UIP/IPF
Acute on chronic SOB
Chronic cough
r/o aspiration, chokes on food
TME from hypoxemia
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
Severe FRANCISCO (AHI 77) on CPAP 14, noncompliant
ILD/Bronchiectasis/Emphysema
Follows with Dr Machado
Mild on CT with areas of bronchiectasis and emphysema
CT 2021 does not meet diagnostic criteria of UIP/IPF pattern
Prior spirometry showing normal pretest and mild obstruction post, new terri 06/08- FEV1 2.09L 70%, ratio 61
A fib s/p ablation 2020
Type 2 DM
Hypertension
Hyperlipidemia
Morrison's esophagus
Anemic
Pneumonia
Ulcers
History of UTI
Shingles
B/L SI TFESI NO SED 03/14/24
Plan
Hypoxemia noted on arrival, previously on 4L NC
This is new for patient
Overnight with confusion, likely hypoxemia from removing O2
Will repeat terri and obtain 6MWT to assess likely new baselines
New terri showing restrictive pattern, FEV1 2.09L 70%, ratio 61 we will start inhalers to resume at home
6MWT showing need for 2L at rest and 4L with exertion--this was reviewed with patient and
Prior history of lung disease is noted including mild ILD, severe FRANCISCO
Has not been compliant wtih CPAP despite mask arrangements and fittings--we discussed resuming PAP at home
Prelim CXR read showing possible PNA
CT chest obtained showing progression of ILD into findings more consistent with UIP/IPF
We discussed pathophysiology of IPF and treatment as an outpatient
Transition IV steroids to PO, can taper down to home dose
Procalcitonin and proBNP are negative on admission
Will obtain echocardiogram for evaluation of pulmonary pressures--reviewed/normal
notes that he has had some degree of choking, aspiration of food
Recurrent aspiration and poorly controlled reflux are contributors to IPF
Speech therapy consult obtained
Will need outpatient pulmonary evaluation in our office for PFTs and 6MWT
Reviewed with patient
Discharge planning per team
Diagnostic Data
Chest X-Ray:
CT Scan: CT Chest 06/05/24- Comparing to CT of the chest from May 06, 2022, there has been significant interval increase in reticular and groundglass opacities throughout both lungs, and this very likely represents bilateral interstitial and
groundglass pneumonitis, which is superimposed upon overall mild to moderate changes of interstitial fibrosis. There is no evidence for significant pleural effusion or pericardial effusion.
Mild changes of paraseptal emphysema in the right upper lung.
05/06/22- LUNGS: Bilaterally, there are abnormal peripheral reticular opacities. Most pronounced at the lateral aspect of the right upper lobe, within the lingula, and at the posterior base of the right lower lobe. There is no associated
honeycombing. There is minimal associated cylindrical bronchiectasis most notable at the right lower lobe. There are some superimposed mild emphysematous changes in the right upper lobe. Lung volumes are slightly low. No areas of dense airspace
consolidation. Small amount of groundglass opacity along the lateral aspect of the left base (image #42 series 2). No pulmonary mass lesion. No suspicious nodules identified. No tracheal or endobronchial filling defects.
Echo: 06/07/24- Normal LV size and function with no regional wall motion abnormalities. LVEF is 60 to 65% by visual estimation. No LVH; mild basal septal hypertrophy. Normal right ventricular size and function. Mild to moderate mitral regurgitation.
Mild tricuspid regurgitation. Estimated pulmonary artery pressure of 30 mmHg, assuming a right atrial pressure of 3 mmHg. Sinuses of Valsalva (4.0 cm) dilatation. No prior study available for comparison.
Spirometry 06/08/24: FEV1 2.09L 70%, FVC 3.28L 80%, ratio 64. Post FEV1 2.2L 73% no BD response (moderate obstruction, declined from prior)
Spirometry 06/10/22: FEV1 2.77L 92%, FVC 3.88L 92%, ratio 0.71. Post FEV1 2.46L 82% with paradoxical BD response. (Pre test normal, post test with mild obstruction).�
Reports and relevant images were personally reviewed.
Total time spent on this encounter __51__ includes review of history, physical exam, medications, laboratory data, personal review of imaging, extensive review of outpatient records, discussion with care team and respiratory therapy.
Subjective Data
-
Date of Service:
Date of Service: June 08, 2024
Chief Complaint: Pulmonary Follow Up
Objective Data
Data Reviewed
Vital Signs / I&O / Oxygen:
Vital Signs
Temp Pulse Resp BP Pulse Ox
97.9 F 89 18 156/80 96
06/08/24 07:27 06/08/24 07:27 06/08/24 07:27 06/08/24 07:27 06/08/24 07:27
Intake and Output
06/07/24 06/08/24 06/09/24
06:59 06:59 06:59
Intake Total 1200 / 1200 660 / 660
Output Total 500 / 500
Balance 700 / 700 660 / 660
SaO2 96
Nasal Cannula flow liters per 4
minute
Labs/Micro/Reports
Lab Data
06/08/24 05:20
06/08/24 07:01
Laboratory Results
06/08/24
04:38
pH 7.42
pCO2 41
pO2 103
HCO3 26.6
O2 Delivery Level
Microbiology
06/04/24 23:55 Urine Legionella Urinary Antigen - Final
Negative for Legionella pneumophila Serogroup 1 antigen.
A negative result does not rule out the possiblity of
Legionella infection due to other serogroups or species of
Legionella. Clinical correlation is recommended.
[2024-06-08 09:40] LABS: Glycohemoglobin (HgbA1c) 6.8 % (4.0-5.6)
[2024-06-08] MEDS: DUONEB 3 ML INH (09:55)
[2024-06-08 11:52] LABS: Glucose - Point of Care 255 mg/dl (70-99)
--- NOTE | 2024-06-08 12:28 | W.PN.HOSP.TC ---
Today's Communication/Plan
-
Monitor vital signs see plan
Wean oxygen as tolerated
Will need home O2 evaluation prior to discharge
Pulmonary following
Continue steroids
Monitor mental status
Called spouse, left voicemail
Assessment / Plan
Assessment / Plan
General: Well Developed, Well Nourished and No Apparent Distress
HEENT: NormoCephalic, Moist mucous membranes and Atraumatic
Respiratory: Clear
Cardiac: S1/S2 and Regular Rhythm; No Murmur or Rub
GI: Soft, Non Tender, Non Distended and Normal Bowel Sounds
Musculoskeletal: No Clubbing, No Cyanosis and No Edema
Skin: No Rash
Neuro: Nonfocal/grossly intact
Right interstitial pneumonitis with possible progression of ILD, appears more consistent with UIP/IPF
Acute hypoxic respiratory failure likely secondary to above
-COVID-negative,flu neg; legionella neg
-Check sputum culture, unable to produce
-cw Ceftriaxone/doxycycline
-Continue guaifenesin
Pulmonary following; PFT;s
CT chest without PE, does have some mild changes of paraseptal emphysema. 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 Still on 3 to 4 L. cw IV
steroids. Chronically on prednisone for PMR. Pulmonary evaluation
per patient hx of extensive smoking however no diagnosis of COPD
overnight 06/07 confused likely 2/2 TME 2/2 hypoxia
monitor
currently at baseline
Mild pulmonary fibrosis
-Does not use oxygen at home
Paroxysmal atrial fibrillation status post ablation
-Continue dofetilide
-Continue Xarelto
Coronary artery disease
Obstructive sleep apnea
Essential hypertension
-Continue lisinopril
Hypercholesterolemia
-Continue statin
Type 2 diabetes
-Continue metformin
accuchecks; LDSS
BPH
-Continue finasteride
Polymyalgia rheumatica
-Hold oral prednisone until on IV steroids
Insomnia
-Continue trazodone
DNR/DNI
DVT prophylaxis�xarelto
Anticipated Discharge: 24 - 48 hours
Subjective/Interval History
-
Date of Service: June 08, 2024
overnight was confused
Objective Data
-
Labs:
Laboratory Results
06/08/24 06/08/24 06/08/24
04:38 05:20 07:01
WBC 13.6 H
Hgb 12.5 L
Hct 36.3 L
Plt Count 386
HCO3 26.6
Sodium Cancelled 137
Potassium Cancelled 4.8
Chloride Cancelled 100
Carbon Dioxide Cancelled 27
BUN Cancelled 36 H
Creatinine Cancelled 1.0
Glucose Cancelled 223 H
Calcium Cancelled 9.9
Vital Signs:
Vital Signs
Temp Pulse Resp BP Pulse Ox
97.6 F 99 16 113/71 97
06/08/24 11:41 06/08/24 11:41 06/08/24 11:41 06/08/24 11:41 06/08/24 11:41
I&O
06/07/24 06/08/24 06/09/24
06:59 06:59 06:59
Intake Total 1200 / 1200 660 / 660
Output Total 500 / 500
Balance 700 / 700 660 / 660
[2024-06-08] MEDS: NOVOLOG FLEXPEN-LOW RESISTANCE 3 UNITS SC (14:08)
--- NOTE | 2024-06-08 16:01 | PTOTSP ---
SPEECH THERAPY SWALLOW EVALUATION:
Patient exhibits clinical signs of oropharyngeal dysphagia, likely chronic of unknown etiology. Patient/ endorse chronic dysphagia symptoms including coughing with solids, globus sensation with solids, and unintentional weight loss of 10 lbs.
Patient currently admitted with Right interstitial pneumonitis. WBC elevated. Patient remains at risk for aspiration given tenuous pulmonary status. Recommend Videofluoroscopic Swallowing Study to further assess swallow physiology. Recommend IDDSI
Level 6 Soft and Bite Size diet, thin liquids until VSE. Medications whole with liquid. Aspiration precautions: 100% supervision; Small sips/bites; Slow rate of intake; Reduce distractions while eating; Upright positioning; Monitor for signs of
aspiration and d/c oral diet if any decline in mental or respiratory status. Speech therapy to follow with additional recommendations following VSE.
RECOMMEND:
1) Videofluoroscopic Swallowing Study
2) IDDSI Level 6 Soft and Bite Size diet, thin liquids
3) Medications whole with liquid
4) Aspiration precautions: 100% supervision; Small sips/bites; Slow rate of intake; Reduce distractions while eating; Upright positioning; Monitor for signs of aspiration and d/c oral diet if any decline in mental or respiratory status
--- NOTE | 2024-06-08 16:46 | PTOTSP ---
SPEECH THERAPY VIDEOFLUOROSCOPIC SWALLOWING STUDY:
Patient presents with mild oral and moderate-severe pharyngeal dysphagia, likely chronic of unknown etiology, though suspect in part due to generalized weakness/deconditioning. Oropharyngeal dysphagia characterized by reduced BOT retraction,
incomplete epiglottic inversion at times, reduced hyolaryngeal elevation, and reduced anterior hyoid excursion, and significant pharyngeal residue in Valleculae and Pyriform sinus. Patient exhibited no aspiration or penetration with any textures
trialed during this examination. However, patient remains at risk for aspiration due to significant pharyngeal residue in Valleculae and Pyriform Sinus, which was increased with increasing viscosities. Patient currently with Right interstitial
pneumonitis. Patient/family report frequent dysphagia symptoms with meals including coughing with solids. Recommend IDDSI Level 6 Soft and Bite Size diet, thin liquids. Medications whole with liquid as best tolerated. Aspiration precautions: 100%
supervision to ensure use of compensatory strategies; Small single sips/bites; Slow rate of intake; Extra dry swallows for each bolus; Alternate textures; Swallow 2-3x per bolus; Ensure oral cavity clear prior to next bite; Upright positioning;
Overchew solids; Limit distractions during meals; No talking while eating/drinking; Oral care 3x/day; Monitor for signs of aspiration; D/c oral diet if any decline in mental or respiratory status. Speech therapy to follow at the acute care level to
assess diet tolerance, modify as appropriate, provide continued diagnostic swallow therapy as appropriate, and provide continued education regarding aspiration risks/precautions. Patient would benefit from ongoing speech therapy services upon
discharge for swallow strength training and reinforcement of aspiration precautions and compensatory strategies. Discussed with patient and .
RECOMMEND:
1) IDDSI Level 6 Soft and Bite Size diet, thin liquids
2) Medications whole with liquid
3) Strict aspiration precautions: 100% supervision to ensure use of compensatory strategies; Small single sips/bites; Slow rate of intake; Extra dry swallows for each bolus; Alternate textures; Swallow 2-3x per bolus; Ensure oral cavity clear prior
to next bite; Upright positioning; Overchew solids; Limit distractions during meals; No talking while eating/drinking. Monitor for signs of aspiration; D/c oral diet if any decline in mental or respiratory status; Oral care 3x/day
4) Speech therapy to follow at the acute care level; Consider outpatient ST services upon discharge for continued swallow strength training
[2024-06-08 17:38] LABS: Glucose - Point of Care 248 mg/dl (70-99)
--- NOTE | 2024-06-08 17:54 | CM ---
Pulmonary Func Test done.
On new oxygen 4 liters Pox 97%.
[facility] set up for dc.
PLAN Home with [facility] for oxygen needs
[2024-06-08] MEDS: XARELTO 20 MG PO (18:10)
[2024-06-08] MEDS: SYMBICORT 160/4.5 MCG INHALER 2 PUFF INH (20:11)
[2024-06-08] MEDS: ROCEPHIN 1000 MG IV (20:42)
[2024-06-08] MEDS: STERILE WATER FOR INJECTION 10 ML IV (20:42)
[2024-06-08 21:18] LABS: Glucose - Point of Care 270 mg/dl (70-99)
[2024-06-08] MEDS: PRAVACHOL 40 MG PO (21:35)
[2024-06-08] MEDS: DESYREL 50 MG PO (21:35)
[2024-06-08] MEDS: PEPCID 40 MG PO (21:35)
[2024-06-09] VITALS (7 sets, daily range): BP systolic 108–124; BP diastolic 53–76; O2SAT 91
[2024-06-09] MEDS: TIKOSYN 500 MCG PO ×2 (07:57→20:56)
[2024-06-09] MEDS: DELTASONE 50 MG PO (07:58)
[2024-06-09] MEDS: VITAMIN D3 (cholecalciferol) 25 MCG PO (07:58)
[2024-06-09] MEDS: FLOMAX 0.4 MG PO (07:58)
[2024-06-09] MEDS: PROTONIX 40 MG PO (07:58)
[2024-06-09] MEDS: PROSCAR 5 MG PO (07:59)
[2024-06-09] MEDS: ZESTRIL 5 MG PO ×2 (07:59→20:57)
[2024-06-09] MEDS: VIBRAMYCIN 100 MG PO ×2 (07:59→20:57)
[2024-06-09] MEDS: GLUCOPHAGE 500 MG PO ×2 (07:59→17:44)
[2024-06-09] MEDS: MIRALAX 17 GRAMS PO (08:09)
[2024-06-09] MEDS: SYMBICORT 160/4.5 MCG INHALER 2 PUFF INH ×2 (08:17→20:03)
[2024-06-09 08:22] LABS: Glucose - Point of Care 138 mg/dl (70-99)
[2024-06-09 08:31] LABS: % Basophils 0.2 % (0-2); % Eosinophils 0.8 % (0-6); % Immature Granulocytes 0.8 % (0-0.5); % Lymphocytes 13.9 % (20.5-51.1); % Monocytes 6.1 % (1.7-9.3); % Neutrophils 78.2 % (42.2-75.2); Absolute Eosinophils 0.1 10^3/uL (0-0.7); Absolute Immature Granulocytes 0.1 10^3/uL (0-0.05); Absolute Lymphocytes 1.7 10^3/uL (1.2-3.4); Absolute Monocytes 0.7 10^3/uL (0.1-0.6); Absolute Neutrophils 9.3 10^3/uL (1.4-6.5); Hematocrit 34.4 % (39.0-52.0); Hemoglobin 11.1 g/dL (13.0-18.0); Mean Corp Hgb Conc. 32.3 g/dL (33.0-37.0); Mean Corpuscular Hgb 27.8 pg (27.0-31.0); Mean Corpuscular Volume 86.2 fL (80.0-94.0); Mean Platelet Volume 9.2 fL (7.4-10.4); Nucleated Red Blood Cells % 0 % (-); Platelet Count 398 10^3/uL (130-400); Red Blood Cell Count 3.99 10^6/uL (4.70-6.10); Red Cell Dist. Width 15.1 % (11.5-14.5); White Blood Cell Count 11.9 10^3/uL (4.8-10.8)
[2024-06-09] MEDS: NOVOLOG FLEXPEN-LOW RESISTANCE SC (08:37)
[2024-06-09 09:02] LABS: Blood Urea Nitrogen 36 mg/dl (9-20); Calcium 9.5 mg/dl (8.4-10.2); Carbon Dioxide 25 mmol/L (22-30); Chloride 101 mmol/L (98-107); Estimated Creatinine Clearance 62 ml/min; Glucose 136 mg/dl (70-99); Potassium 4.7 mmol/L (3.5-5.1); Sodium 138 mmol/L (135-145); eGFR > 60.00
--- NOTE | 2024-06-09 09:41 | W.PN.PUL3 ---
Today's Communication / Plan
-
Continue with Symbicort with prn albuterol, and he should be discharged home with LABA/ICS (Symbicort versus Breyna versus Advair, which ever his insurance would cover)
6MWT reviewed showing need for 2L set up at home, 4L with exertion --> consider rechecking home oxygen assessment if O2 needs continue to improve
Transition IV steroids to PO--> taper down by 10 mg every fifth day until back at home dose
Resume CPAP at home
OP pulm FU recommended at discharge
PT/OT
Aspiration precautions; diet as per NUTRITION AND DIETETICS INSTRUCTOR
Assessment
-
Patient is a 84-year-old male past medical history of severe FRANCISCO, ILD, paroxysmal atrial fibrillation status post ablation, hypertension, hypercholesteremia, diabetes, polymyalgia rheumatica presenting with persistent productive cough for the past 3
weeks associate with some shortness of breath. Symptoms were particularly worse over the past 1 to 2 days. Pulse ox was 86% on arrival. He had fever of 100 in the last week but denies any chills. at bedside notes that he has been
coughing/choking with good intake more so recently. CT showing worsening ILD findings, we are consulted for eval.
Impression:
Acute hypoxic respiratory failure likely due to acute ILD flare but unable to rule out superimposed aspiration PNA, especially given history of moderate�severe oropharyngeal dysphagia per NUTRITION AND DIETETICS INSTRUCTOR eval on 06/08/2024
Progression of ILD, now more consistent with UIP/IPF
Acute on chronic SOB
Chronic cough
Moderate�severe oropharyngeal dysphagia
TME from hypoxemia - improved
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
Severe FRANCISCO (AHI 77) on CPAP 14, noncompliant
ILD/Bronchiectasis/Emphysema
Follows with Dr Machado
Mild on CT with areas of bronchiectasis and emphysema
CT 2021 does not meet diagnostic criteria of UIP/IPF pattern
Prior spirometry showing normal pretest and mild obstruction post, new terri 06/08- FEV1 2.09L 70%, ratio 61
A fib s/p ablation 2020
Type 2 DM
Hypertension
Hyperlipidemia
Morrison's esophagus
Anemic
Pneumonia
Ulcers
History of UTI
Shingles
B/L SI TFESI NO SED 03/14/24
Plan
Hypoxemia noted on arrival, previously on 4L NC
He is now not confused and is currently on 3 L/min nasal cannula, and he feels much better which is corroborated by the
O2 requirements are new
Will repeat terri and obtain 6MWT to assess likely new baselines
New terri showing mild restriction with post-� BD FVC: 77% predicted, also with resolution of obstructive defect with bronchodilator, with FEV1/FVC improving from 64-70. This is consistent with asthma, continue with Symbicort pattern
6MWT showing need for 2L at rest and 4L with exertion--this was reviewed with patient and by Dr. Alvarez
- Consider repeat walking O2 testing prior to discharge if needs improve
Prior history of lung disease is noted including mild ILD, severe FRANCISCO
Has not been compliant wt CPAP despite mask arrangements and fittings--Dr. Alvarez discussed resuming PAP at home
Prelim CXR read showing possible PNA
CT chest from 06/05/2024 obtained showing bilateral interstitial/groundglass pneumonitis superimposed on moderate interstitial fibrosis; suspect that this is an acute inflammatory pneumonitis versus aspiration pneumonia
We discussed pathophysiology of IPF and treatment as an outpatient
Transition IV steroids to PO, can taper down to home dose
- Currently on prednisone 50mg daily --> wean down by 10mg every 5th day until back at his home dose
Procalcitonin and proBNP are negative on admission
Will obtain echocardiogram for evaluation of pulmonary pressures--reviewed, showing preserved LVEF at 60-65% with normal RV size/function, with mild�moderate MR and mild pulmonary hypertension with PASP 30 mmHg assuming an RAP of 3 mmHg
notes that he has had some degree of choking, aspiration of food
Recurrent aspiration and poorly controlled reflux are contributors to IPF
Speech therapy consult obtained, with VFSS performed on 06/08/2024 showing moderate�severe oropharyngeal dysphagia
-Defer diet to NUTRITION AND DIETETICS INSTRUCTOR and continue with aspiration precautions
Will need outpatient pulmonary evaluation in our office for PFTs and 6MWT
Reviewed with patient
Discharge planning per team
Pulmonary service to continue to follow along while he remains hospitalized.
Diagnostic Data
Chest X-Ray:
CT Scan: CT Chest 06/05/24- Comparing to CT of the chest from May 06, 2022, there has been significant interval increase in reticular and groundglass opacities throughout both lungs, and this very likely represents bilateral interstitial and
groundglass pneumonitis, which is superimposed upon overall mild to moderate changes of interstitial fibrosis. There is no evidence for significant pleural effusion or pericardial effusion.
Mild changes of paraseptal emphysema in the right upper lung.
05/06/22- LUNGS: Bilaterally, there are abnormal peripheral reticular opacities. Most pronounced at the lateral aspect of the right upper lobe, within the lingula, and at the posterior base of the right lower lobe. There is no associated
honeycombing. There is minimal associated cylindrical bronchiectasis most notable at the right lower lobe. There are some superimposed mild emphysematous changes in the right upper lobe. Lung volumes are slightly low. No areas of dense airspace
consolidation. Small amount of groundglass opacity along the lateral aspect of the left base (image #[id number] series 2). No pulmonary mass lesion. No suspicious nodules identified. No tracheal or endobronchial filling defects.
Echo: 06/07/24- Normal LV size and function with no regional wall motion abnormalities. LVEF is 60 to 65% by visual estimation. No LVH; mild basal septal hypertrophy. Normal right ventricular size and function. Mild to moderate mitral regurgitation.
Mild tricuspid regurgitation. Estimated pulmonary artery pressure of 30 mmHg, assuming a right atrial pressure of 3 mmHg. Sinuses of Valsalva (4.0 cm) dilatation. No prior study available for comparison.
Spirometry 06/08/24: FEV1 2.09L 70%, FVC 3.28L 80%, ratio 64. Post FEV1 2.2L 73% no BD response (moderate obstruction, declined from prior)
Spirometry 06/10/22: FEV1 2.77L 92%, FVC 3.88L 92%, ratio 0.71. Post FEV1 2.46L 82% with paradoxical BD response. (Pre test normal, post test with mild obstruction).�
Reports and relevant images were personally reviewed.
Total time spent today was 35 minutes for this encounter. Time includes reviewing laboratory test/imaging results, reviewing pertinent medical records, obtaining and reviewing medical history, performing an appropriate exam, ordering medications,
tests and procedures. Time also includes documentation of this encounter, coordinating patient care and communicating with other healthcare professionals. Total time does not include separately billed tests performed on this date of service.
Subjective Data
-
Date of Service:
Date of Service: June 09, 2024
Chief Complaint: Pulmonary Follow Up
Subjective:
Patient seen and evaluated today at bedside. Patient's , Gisselle, at bedside. Patient still coughing up yellow phlegm. He is currently on 3 L/min nasal cannula. No acute events reported overnight. He feels like he has more energy and he
denies CURRIE, chest pain, abdominal pain, nausea, fevers or chills.
Review of Systems
General: Other (Negative unless mentioned above)
Objective Data
Data Reviewed
Vital Signs / I&O / Oxygen:
Vital Signs
Temp Pulse Resp BP Pulse Ox
98 F 88 16 124/68 92
06/09/24 07:00 06/09/24 08:24 06/09/24 08:24 06/09/24 07:00 06/09/24 08:24
Intake and Output
06/08/24 06/09/24 06/10/24
06:59 06:59 06:59
Intake Total 660 / 660 750 / 750
Output Total 950 / 950
Balance 660 / 660 -200 / -200
SaO2 92
Nasal Cannula flow liters per 4
minute
Physical Exam
HEENT: Normocephalic and Anicteric
Cardiovascular: S1-S2 and Peripheral Edema (+1 lower extremity edema bilaterally)
Respiratory: Wheeze (negative), Crackles (Left anterior lung field), Rhonchi (negative) and Non-Labored Respirations
GI: Soft, Non Distended, Non Tender and Normal Bowel Sounds
Neurology: AO x 3 and Tremors (negative)
Skin: Warm, Dry and Jaundice (negative)
Labs/Micro/Reports
Lab Data
06/09/24 06:55
06/09/24 06:55
--- NOTE | 2024-06-09 10:33 | RESPNOTE ---
started pt on R/A. Pt desaturated to 88. increased to 2L for the walk. pt had to be increased to 4 to maintain spo2 of 92% during the walk. (03/08/24). notified of results
--- NOTE | 2024-06-09 11:53 | W.PN.HOSP.TC ---
Today's Communication/Plan
-
Monitor vital signs see plan
Monitor mental status
Now transition to prednisone, will do taper
Set up home O2
Hopeful DC tomorrow
discussed with spouse at bedside
Assessment / Plan
Assessment / Plan
General: Well Developed, Well Nourished and No Apparent Distress
HEENT: NormoCephalic, Moist mucous membranes and Atraumatic
Respiratory: Clear
Cardiac: S1/S2 and Regular Rhythm; No Murmur or Rub
GI: Soft, Non Tender, Non Distended and Normal Bowel Sounds
Musculoskeletal: No Clubbing, No Cyanosis and No Edema
Skin: No Rash
Neuro: Nonfocal/grossly intact
Right interstitial pneumonitis with possible progression of ILD, appears more consistent with UIP/IPF
Acute hypoxic respiratory failure likely secondary to above
-COVID-negative,flu neg; legionella neg
-Check sputum culture, unable to produce
-cw Ceftriaxone/doxycycline
-Continue guaifenesin
Pulmonary following; PFT;s
CT chest without PE, does have some mild changes of paraseptal emphysema. 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 Still on 3 to 4 L. Now started
on prednisone. Chronically on prednisone for PMR. Pulmonary following. started on symbicort
per patient hx of extensive smoking however no diagnosis of COPD
Patient is in need of oxygen at 2-4 liters/minute via nasal cannula continuously due to pulse oximetry of 88% on room air at rest. Oxygen will help to improve hypoxemia. Patient is mobile within the home. DuoNeb therapy has been tried and is
ineffective in treating hypoxemia related symptoms. Oxygen is needed to improve symptoms.
evaluated by speech; ok for IDDS 6 diet with thin
overnight 06/07 confused likely 2/2 TME 2/2 hypoxia
monitor
currently at baseline
Mild pulmonary fibrosis
-Does not use oxygen at home
Paroxysmal atrial fibrillation status post ablation
-Continue dofetilide
-Continue Xarelto
Coronary artery disease
Obstructive sleep apnea
Essential hypertension
-Continue lisinopril
Hypercholesterolemia
-Continue statin
Type 2 diabetes
-Continue metformin
accuchecks; LDSS
BPH
-Continue finasteride
Polymyalgia rheumatica
-Hold oral prednisone home dose until taper to that
Insomnia
-Continue trazodone
DNR/DNI
DVT prophylaxis�xarelto
Anticipated Discharge: Within 24 hours
Subjective/Interval History
-
Date of Service: June 09, 2024
denies pain
Objective Data
-
Labs:
Laboratory Results
06/09/24
06:55
WBC 11.9 H
Hgb 11.1 L
Hct 34.4 L
Plt Count 398
Sodium 138
Potassium 4.7
Chloride 101
Carbon Dioxide 25
BUN 36 H
Creatinine 1.0
Glucose 136 H
Calcium 9.5
Vital Signs:
Vital Signs
Temp Pulse Resp BP Pulse Ox
98 F 88 16 124/68 92
06/09/24 07:00 06/09/24 08:24 06/09/24 08:24 06/09/24 07:00 06/09/24 08:24
I&O
06/08/24 06/09/24 06/10/24
06:59 06:59 06:59
Intake Total 660 / 660 750 / 750
Output Total 950 / 950
Balance 660 / 660 -200 / -200
[2024-06-09 13:24] LABS: Glucose - Point of Care 235 mg/dl (70-99)
[2024-06-09] MEDS: NOVOLOG FLEXPEN-LOW RESISTANCE 2 UNITS SC ×2 (13:31→17:45)
--- NOTE | 2024-06-09 15:13 | CM ---
Received consult for home o2. Placed a call to [facility] and spoke with Chiquita who stated that she needs: Face Sheet, H&P, Progress note, o2 Sat testing, and Script faxed to: [phone].
Faxed all requested paperwork.
Received return call from Chiquita who stated that she has all necessary paperwork and will call patient to bring unit to the bedside and coordinate a time to drop off concentrator.
VN services already has accepted ().
Plan: Case management will continue to follow and assist with discharge planning. Home with VN and o2 through [facility].
--- NOTE | 2024-06-09 15:53 | PTCARENOTE ---
patient denies sob, tolerating diet, medicated with PRN Miralax this am for no BM since 06/02/24. has been sitting oob in chair quad cane, has oxygen extension tubing, vss, will continue to monitor.
[2024-06-09 17:39] LABS: Glucose - Point of Care 245 mg/dl (70-99)
[2024-06-09] MEDS: XARELTO 20 MG PO (17:44)
[2024-06-09] MEDS: ROCEPHIN 1000 MG IV (20:55)
[2024-06-09] MEDS: STERILE WATER FOR INJECTION 10 ML IV (20:56)
[2024-06-09] MEDS: PRAVACHOL 40 MG PO (21:00)
[2024-06-09] MEDS: DESYREL 50 MG PO (21:00)
[2024-06-09] MEDS: PEPCID 40 MG PO (21:00)
[2024-06-09 21:09] LABS: Glucose - Point of Care 207 mg/dl (70-99)
[2024-06-10 03:26] VITALS: BP 138/69
[2024-06-10 07:00] VITALS: BP 129/73
[2024-06-10] MEDS: SYMBICORT 160/4.5 MCG INHALER 2 PUFF INH (07:45)
[2024-06-10 08:19] LABS: Glucose - Point of Care 131 mg/dl (70-99)
[2024-06-10] MEDS: PROSCAR 5 MG PO (08:48)
[2024-06-10] MEDS: VITAMIN D3 (cholecalciferol) 25 MCG PO (08:48)
[2024-06-10] MEDS: NOVOLOG FLEXPEN-LOW RESISTANCE SC ×2 (08:48→12:45)
[2024-06-10] MEDS: VIBRAMYCIN 100 MG PO (08:48)
[2024-06-10] MEDS: ZESTRIL 5 MG PO (08:48)
[2024-06-10] MEDS: PROTONIX 40 MG PO (08:48)
[2024-06-10] MEDS: FLOMAX 0.4 MG PO (08:48)
[2024-06-10] MEDS: GLUCOPHAGE 500 MG PO (08:48)
[2024-06-10] MEDS: DELTASONE 50 MG PO (08:49)
[2024-06-10] MEDS: TIKOSYN 500 MCG PO (08:49)
[2024-06-10] MEDS: MIRALAX 17 GRAMS PO (08:49)
--- NOTE | 2024-06-10 09:35 | W.PN.PUL3 ---
Today's Communication / Plan
-
Continue with Symbicort with prn albuterol, and he should be discharged home with LABA/ICS (Symbicort versus Breyna versus Advair, whichever his insurance will cover)
6MWT reviewed showing need for 2L set up at home, 4L with exertion
Transition IV steroids to PO--> taper down by 10 mg every fifth day until back at home dose
Resume CPAP at home
OP pulm FU recommended at discharge
PT/OT
Aspiration precautions; diet as per DEVELOPMENTAL SERVICES WORKER
Patient being prepared for discharge home. We will arrange for outpatient follow-up with our office. Repeat chest imaging to be performed as well as an outpatient in about 4-6 weeks. Pulmonary service will now sign off. Please reconsult if there
are any additional questions/concerns, or if patient's respiratory status deteriorates.
Assessment
-
Patient is a 84-year-old male past medical history of severe FRANCISCO, ILD, paroxysmal atrial fibrillation status post ablation, hypertension, hypercholesteremia, diabetes, polymyalgia rheumatica presenting with persistent productive cough for the past 3
weeks associate with some shortness of breath. Symptoms were particularly worse over the past 1 to 2 days. Pulse ox was 86% on arrival. He had fever of 100 in the last week but denies any chills. at bedside notes that he has been
coughing/choking with good intake more so recently. CT showing worsening ILD findings, we are consulted for eval.
Impression:
Acute hypoxic respiratory failure likely due to acute ILD flare but unable to rule out superimposed aspiration PNA, especially given history of moderate�severe oropharyngeal dysphagia per DEVELOPMENTAL SERVICES WORKER eval on 06/08/2024
Progression of ILD, now more consistent with UIP/IPF
Acute on chronic SOB
Chronic cough
Moderate�severe oropharyngeal dysphagia
TME from hypoxemia - improved
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
Severe FRANCISCO (AHI 77) on CPAP 14, noncompliant
ILD/Bronchiectasis/Emphysema
Follows with Dr Machado
Mild on CT with areas of bronchiectasis and emphysema
CT 2021 does not meet diagnostic criteria of UIP/IPF pattern
Prior spirometry showing normal pretest and mild obstruction post, new terri 06/08- FEV1 2.09L 70%, ratio 61
A fib s/p ablation 2020
Type 2 DM
Hypertension
Hyperlipidemia
Morrison's esophagus
Anemic
Pneumonia
Ulcers
History of UTI
Shingles
B/L SI TFESI NO SED 03/14/24
Plan
Hypoxemia noted on arrival, previously on 4L NC
He is no longer confused and is currently on 3-4 L/min nasal cannula, and he feels much better which is corroborated by the
O2 requirements are new
Home O2 assessment performed on 06/08/2024 shows he needs 2 L/min with rest, 4 L/min with activity --> CM consult to get him set up for home O2
I advised to the patient to get a pulse oximeter for home use to continue monitoring his saturations; I advised him to maintain SpO2 >90%
Barnhart done on 06/08/2024 showed mid restriction with post-BD FVC: 77% predicted, also with resolution of obstructive defect with bronchodilator, with FEV1/FVC improving from 64-70. This is consistent with asthma, continue with Symbicort pattern
6MWT showing need for 2L at rest and 4L with exertion--this was reviewed with patient and by Dr. Alvarez
Prior history of lung disease is noted including mild ILD, severe FRANCISCO
Has not been compliant wt CPAP despite mask arrangements and fittings--Dr. Alvarez discussed resuming PAP at home
Prelim CXR read showing possible PNA
CT chest from 06/05/2024 obtained showing bilateral interstitial/groundglass pneumonitis superimposed on moderate interstitial fibrosis; suspect that this is an acute inflammatory pneumonitis versus aspiration pneumonia
We discussed pathophysiology of IPF and treatment as an outpatient
Transition IV steroids to PO, can taper down to home dose
- Currently on prednisone 50mg daily --> wean down by 10mg every 5th day until back at his home dose
Procalcitonin and proBNP are negative on admission
Will obtain echocardiogram for evaluation of pulmonary pressures--reviewed, showing preserved LVEF at 60-65% with normal RV size/function, with mild�moderate MR and mild pulmonary hypertension with PASP 30 mmHg assuming an RAP of 3 mmHg
notes that he has had some degree of choking, aspiration of food
Recurrent aspiration and poorly controlled reflux are contributors to IPF
Speech therapy consult obtained, with VFSS performed on 06/08/2024 showing moderate�severe oropharyngeal dysphagia
-Defer diet to DEVELOPMENTAL SERVICES WORKER and continue with aspiration precautions
Will need outpatient pulmonary evaluation in our office for PFTs and 6MWT
Reviewed with patient
Discharge planning per team
Patient being prepared for discharge home. We will arrange for outpatient follow-up with our office. Repeat chest imaging to be performed as well as an outpatient in about 4-6 weeks. Pulmonary service will now sign off. Thank you for allowing us
to be involved in the care of this patient. Please reconsult if there are any additional questions/concerns, or if patient's respiratory status deteriorates.
Diagnostic Data
CT Scan: CT Chest 06/05/24- Comparing to CT of the chest from May 06, 2022, there has been significant interval increase in reticular and groundglass opacities throughout both lungs, and this very likely represents bilateral interstitial and
groundglass pneumonitis, which is superimposed upon overall mild to moderate changes of interstitial fibrosis. There is no evidence for significant pleural effusion or pericardial effusion.
Mild changes of paraseptal emphysema in the right upper lung.
05/06/22- LUNGS: Bilaterally, there are abnormal peripheral reticular opacities. Most pronounced at the lateral aspect of the right upper lobe, within the lingula, and at the posterior base of the right lower lobe. There is no associated
honeycombing. There is minimal associated cylindrical bronchiectasis most notable at the right lower lobe. There are some superimposed mild emphysematous changes in the right upper lobe. Lung volumes are slightly low. No areas of dense airspace
consolidation. Small amount of groundglass opacity along the lateral aspect of the left base (image #42 series 2). No pulmonary mass lesion. No suspicious nodules identified. No tracheal or endobronchial filling defects.
Echo: 9/12/24- Normal LV size and function with no regional wall motion abnormalities. LVEF is 60 to 65% by visual estimation. No LVH; mild basal septal hypertrophy. Normal right ventricular size and function. Mild to moderate mitral regurgitation.
Mild tricuspid regurgitation. Estimated pulmonary artery pressure of 30 mmHg, assuming a right atrial pressure of 3 mmHg. Sinuses of Valsalva (4.0 cm) dilatation. No prior study available for comparison.
Spirometry 06/08/24: FEV1 2.09L 70%, FVC 3.28L 80%, ratio 64. Post FEV1 2.2L 73% no BD response (moderate obstruction, declined from prior)
Spirometry 06/10/22: FEV1 2.77L 92%, FVC 3.88L 92%, ratio 0.71. Post FEV1 2.46L 82% with paradoxical BD response. (Pre test normal, post test with mild obstruction).�
Reports and relevant images were personally reviewed.
Total time spent today was 25 minutes for this encounter. Time includes reviewing laboratory test/imaging results, reviewing pertinent medical records, obtaining and reviewing medical history, performing an appropriate exam, ordering medications,
tests and procedures. Time also includes documentation of this encounter, coordinating patient care and communicating with other healthcare professionals. Total time does not include separately billed tests performed on this date of service.
Subjective Data
-
Date of Service:
Date of Service: June 10, 2024
Chief Complaint: Pulmonary Follow Up
Subjective:
Patient seen and evaluated today at bedside. Currently on 4 L/min nasal cannula. Still has an occasional cough with brown phlegm. at bedside and all questions were answered. He is being prepared for discharge home today. No acute events
reported overnight. He denies CURRIE, chest pain, abdominal pain, fevers or chills. Home O2 assessment performed on 06/08, and he needed 4 L/min with exertion, 2 L/min with rest.
Review of Systems
General: Other (Negative unless mentioned above)
Objective Data
Data Reviewed
Vital Signs / I&O / Oxygen:
Vital Signs
Temp Pulse Resp BP Pulse Ox
98.2 F 71 16 129/73 93
06/10/24 07:00 06/10/24 07:51 06/10/24 07:51 06/10/24 07:00 06/10/24 07:51
Intake and Output
06/09/24 06/10/24 06/11/24
06:59 06:59 06:59
Intake Total 750 / 750 1560 / 1560
Output Total 950 / 950
Balance -200 / -200 1560 / 1560
SaO2 93
Nasal Cannula flow liters per 2
minute
Physical Exam
General: Respiratory Distress (negative), Comfortable and Chills (negative)
HEENT: Normocephalic and Anicteric
Cardiovascular: S1-S2 and Peripheral Edema (+1 lower extremity edema bilaterally)
Respiratory: Wheeze (negative), Rhonchi (negative), Non-Labored Respirations and Other (Coarse breath sounds heard bilaterally (particularly the right upper lobe))
GI: Soft, Non Distended, Non Tender and Normal Bowel Sounds
Neurology: AO x 3 and Tremors (negative)
Skin: Warm, Dry and Jaundice (negative)
[2024-06-10 10:00] LABS: % Basophils 0.1 % (0-2); % Eosinophils 1.1 % (0-6); % Immature Granulocytes 0.7 % (0-0.5); % Lymphocytes 17.1 % (20.5-51.1); % Monocytes 7.7 % (1.7-9.3); % Neutrophils 73.3 % (42.2-75.2); Absolute Eosinophils 0.1 10^3/uL (0-0.7); Absolute Immature Granulocytes 0.1 10^3/uL (0-0.05); Absolute Lymphocytes 1.9 10^3/uL (1.2-3.4); Absolute Monocytes 0.9 10^3/uL (0.1-0.6); Hematocrit 39.7 % (39.0-52.0); Mean Corp Hgb Conc. 32.7 g/dL (33.0-37.0); Mean Corpuscular Hgb 28.1 pg (27.0-31.0); Mean Corpuscular Volume 85.7 fL (80.0-94.0); Mean Platelet Volume 8.9 fL (7.4-10.4); Nucleated Red Blood Cells % 0 % (-); Platelet Count 408 10^3/uL (130-400); Red Blood Cell Count 4.63 10^6/uL (4.70-6.10); Red Cell Dist. Width 14.9 % (11.5-14.5)
[2024-06-10 10:12] LABS: Blood Urea Nitrogen 36 mg/dl (9-20); Calcium 9.9 mg/dl (8.4-10.2); Carbon Dioxide 30 mmol/L (22-30); Chloride 98 mmol/L (98-107); Estimated Creatinine Clearance 62 ml/min; Glucose 157 mg/dl (70-99); Potassium 4.5 mmol/L (3.5-5.1); Sodium 139 mmol/L (135-145); eGFR > 60.00
--- NOTE | 2024-06-10 10:53 | W.PN.HOSP.TC ---
Today's Communication/Plan
-
monitor vitals
see plan
needs home o2
prednisone taper
dc further abx
symbicort
dc today
Discussed with at bedside
time of discharge 38 minutes
Assessment / Plan
Assessment / Plan
General: Well Developed, Well Nourished and No Apparent Distress
HEENT: NormoCephalic, Moist mucous membranes and Atraumatic
Respiratory: Clear
Cardiac: S1/S2 and Regular Rhythm; No Murmur or Rub
GI: Soft, Non Tender, Non Distended and Normal Bowel Sounds
Musculoskeletal: No Clubbing, No Cyanosis and No Edema
Skin: No Rash
Neuro: Nonfocal/grossly intact
Right interstitial pneumonitis with possible progression of ILD, appears more consistent with UIP/IPF
Acute hypoxic respiratory failure likely secondary to above
-COVID-negative,flu neg; legionella neg
-Check sputum culture, unable to produce
-cw Ceftriaxone/doxycycline
-Continue guaifenesin
Pulmonary following; PFT;s
CT chest without PE, does have some mild changes of paraseptal emphysema. 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 Still on 3 to 4 L. Now started
on prednisone. Chronically on prednisone for PMR. Pulmonary following. started on symbicort. Now on prednisone. taper down by 10 mg every fifth day until back at home dose
per patient hx of extensive smoking however no diagnosis of COPD
Patient is in need of oxygen at 2-4 liters/minute via nasal cannula continuously due to pulse oximetry of 88% on room air at rest. Oxygen will help to improve hypoxemia. Patient is mobile within the home. DuoNeb therapy has been tried and is
ineffective in treating hypoxemia related symptoms. Oxygen is needed to improve symptoms.
evaluated by speech; ok for IDDS 6 diet with thin
overnight 06/07 confused likely 2/2 TME 2/2 hypoxia
monitor
currently at baseline
Mild pulmonary fibrosis
-Does not use oxygen at home
Paroxysmal atrial fibrillation status post ablation
-Continue dofetilide
-Continue Xarelto
Coronary artery disease
Obstructive sleep apnea
Essential hypertension
-Continue lisinopril
Hypercholesterolemia
-Continue statin
Type 2 diabetes
-Continue metformin
accuchecks; LDSS
BPH
-Continue finasteride
Polymyalgia rheumatica
-Hold oral prednisone home dose until taper to that
Insomnia
-Continue trazodone
DNR/DNI
DVT prophylaxis�xarelto
Anticipated Discharge: Today
Subjective/Interval History
-
Date of Service: June 10, 2024
denies pain
Objective Data
-
Labs:
Laboratory Results
06/10/24
09:43
WBC 11.0 H
Hgb 13.0
Hct 39.7
Plt Count 408 H
Sodium 139
Potassium 4.5
Chloride 98
Carbon Dioxide 30
BUN 36 H
Creatinine 1.0
Glucose 157 H
Calcium 9.9
Vital Signs:
Vital Signs
Temp Pulse Resp BP Pulse Ox
98.2 F 71 16 129/73 93
06/10/24 07:00 06/10/24 07:51 06/10/24 07:51 06/10/24 07:00 06/10/24 07:51
I&O
06/09/24 06/10/24 06/11/24
06:59 06:59 06:59
Intake Total 750 / 750 1560 / 1560
Output Total 950 / 950
Balance -200 / -200 1560 / 1560
[2024-06-10 11:00] VITALS: BP 143/66
--- NOTE | 2024-06-10 11:18 | CM ---
Addendum entered by CYNTHIA Simons 06/10/24 12:20:
Spoke with Carrillo from [facility] who brought portables in for patient to go home and updated patient and who was at bedside that he will meet them at home. Reviewed IMM now on chart.
Original Note:
Spoke with attending, patient medically cleared for discharge. Called Rachel at [facility] [phone] who confirmed that they will be out to see patient early this week.
Will update patient.
o2 provided yesterday.
Plan: Case management will continue to follow and assist with discharge planning. Home with [facility] and o2.
--- NOTE | 2024-06-10 11:22 | W.DCSUMMARY ---
Discharge Summary
Discharge Data
Date of Admission: 06/03/24
Date of Discharge: 06/10/24
-
Pending Results: No
Hospital Course
84-year-old male with past medical history of pulmonary fibrosis, paroxysmal atrial fibrillation status post ablation, coronary artery disease, obstructive sleep apnea, essential hypertension, hyperlipidemia, type 2 diabetes mellitus, BPH,
polymyalgia rheumatica, insomnia came to the hospital with acute hypoxic respiratory failure. Initially on x-ray it appeared that patient had pneumonia for which she was started on antibiotics. He continued to require oxygenation so CT scan was
done which showed bilateral interstitial and groundglass pneumonitis superimposed on background changes of interstitial fibrosis. Patient was then started on IV steroids and he was seen by pulmonary. He also had PFTs done which showed obstructive
lung disease so he was started on Symbicort along with albuterol. On his ambulatory pulse ox it appeared that he required oxygenation at rest and during ambulation on discharge. While he was in the hospital he also developed TME which over time
continue to improve. Once his symptoms continue to improve, his Decadron was then changed to oral prednisone with taper prior to discharge. On discharge he was also instructed to follow-up closely with his primary care provider outpatient and to
get repeat imaging of his chest in 4 to 6 weeks.
Discharge Plan
-
Patient Disposition: Home with Home Care
Discharge Diagnosis/Procedures: Interstitial pneumonitis with possible progression of interstitial lung disease
Acute hypoxic respiratory failure
Toxic metabolic encephalopathy
Suspected obstructive lung disease
Diet: Other diet
Additional Diets: Soft and bite-size with thin liquid
Activity: As tolerated
Driving Restrictions: As prior to admission
Bathing Restrictions: None
Activity Restrictions/Additional Instructions:
taper down by 10 mg every fifth day until back at home dose
Referrals:
Suzan Machado, [Active] -
(2 weeks/PFTs
Mask fit/DME appt with Amy)
Martin Carmen MD [Family Provider] - in less than 1 week
Prescriptions:
New
prednisone 10 mg Tablet
See Rx Instructions .ROUTE .COMPLEX Qty: 60 0RF
Rx Instructions:
Take By Mouth:
50 mg daily x3 days, 40 mg daily x5 days,
30 mg daily x5 days, 20 mg daily x5 days,
then go to your home dose 12.5mg
albuterol sulfate 90 mcg/actuation Hfa Aerosol Inhaler
2 puff inhalation R Q4HPRN PRN (Reason: SOB/wheezing) Qty: 8.5 0RF
budesonide-formoterol [Symbicort] 160-4.5 mcg/actuation Hfa Aerosol Inhaler
2 puff inhalation R BID Qty: 10.2 0RF
Continued
trazodone 50 mg Tablet
50 mg PO HS
metformin 500 mg Tablet
500 mg PO BID
acetaminophen [Tylenol] 325 mg Tablet
650 mg PO QIDPRN PRN (Reason: fever)
polyethylene glycol 3350 [Miralax] 17 gram Powder In Packet
17 g PO DAILYPRN PRN (Reason: constipation)
pravastatin 40 mg Tablet
40 mg PO HS
famotidine [Pepcid] 40 mg Tablet
40 mg PO HS
omeprazole 40 mg Capsule,Delayed Release(Dr/Ec)
40 mg PO DAILY
tamsulosin [Flomax] 0.4 mg Capsule
0.4 mg PO DAILY
lisinopril 5 mg Tablet
5 mg PO BID
dofetilide 500 mcg Capsule
500 mcg PO BID
finasteride 5 mg Tablet
5 mg PO DAILY
cholecalciferol (vitamin D3) [Vitamin D3] 25 mcg (1,000 unit) Tablet
25 mcg PO DAILY
Xarelto 20 mg Tablet
20 mg PO QPM
guaifenesin [Mucinex] 600 mg Tablet Extended Release 12hr
600 mg PO BIDPRN PRN (Reason: cough)
Held
prednisone 10 mg Tablet
12.5 mg PO DAILY
Hold Instructions: Restart when done with taper
Discharge Orders:
Discharge Patient (As Directed); Ordered 06/10/24
Ordered By: Andrew Driver
Discharge Date and Time
Discharge Date/Time: 06/10/24 14:17
Print Language: YORUBA
--- NOTE | 2024-06-10 12:00 | PTCARENOTE ---
Discharge instructions reviewed with patient and spouse. Patient's anxious about going home with oxygen. RN re enforced how to turn on portable O2 tank and placement of nasal cannula. Spouse verbalized understanding. Patient ambulated to
wheelchair with a steady gait and extended O2 tubing.
--- NOTE | 2024-06-10 13:19 | W.SUR.POST ---
Surgical Immediate Post Op
Note
Chest Tube Lytic Instillation Procedure
Date of procedure: 06/10/2024
Pre Op Diagnosis: Left sided loculated effusion
Post Op Diagnosis: Same as above
Procedure Performed: Chest tube lytic instillation with tPA and Dornase
Primary Surgeon/Proceduralist: Dr. Grubbs
Secondary Surgeons: N/A
Anesthesia: N/A
Estimated Blood Loss: None
Fluids: N/A
Drains/Shunts: N/A
Specimens/Cultures: N/A
Doppler/Duplex/Angio (Y/N): N/A
Complications: No immediate complications.
Operative Findings: After verbal consent obtained, patient was positioned into recumbent position so that I could access his chest tube. Chest tube was clamped, and sterile technique was employed using hand washing, sterile gloves, mask and gown.
Chest tube tubing was disconnected so that I could access opening, and normal saline was flushed into chest tube. 10mg of tPA and 5mg of dornase was instilled without incident, and flushed with 10cc of NS 0.9% after each instillation. Alcohol
wipes were used to wipe down the catheter tips and the chest tube tubing site before and after each instillation to maximize sterility. Chest tube was then clamped and is to remain off suction for 90-120 minutes, at which point the chest tube
should be unclamped and then placed back onto suction. Bedside RN assisted with procedure. Patient tolerated procedure without any immediate complications, and I answered all of his questions.
== END 2024-06-10 14:17 | disposition home health service (06) | DRG 196 ==
LOC: 3 WEST ACU 16:24
PROVIDERS: Physician Assistant; Registered Nurse; Student in an Organized Health Care Education/Training Program; ADMITTING PHYSICIAN Hospitalist; ATTENDING PHYSICIAN Internal Medicine; EMERGENCY PHYSICIAN Emergency Medicine; FAMILY PHYSICIAN Family Medicine; OTHER PHYSICIAN Internal Medicine
DX: J84.89 Other specified interstitial pulmonary diseases (principal); G92.8 Other toxic encephalopathy; J96.01 Acute respiratory failure with hypoxia; J44.9 Chronic obstructive pulmonary disease, unspecified; E11.9 Type 2 diabetes mellitus without complications; F32.A Depression, unspecified; J43.9 Emphysema, unspecified; J47.9 Bronchiectasis, uncomplicated; I10 Essential (primary) hypertension; Z66 Do not resuscitate; M35.3 Polymyalgia rheumatica; D64.9 Anemia, unspecified; J84.10 Pulmonary fibrosis, unspecified; E78.00 Pure hypercholesterolemia, unspecified; G47.00 Insomnia, unspecified; G47.33 Obstructive sleep apnea (adult) (pediatric); I48.0 Paroxysmal atrial fibrillation; I25.10 Atherosclerotic heart disease of native coronary artery without angina pectoris; N40.0 Benign prostatic hyperplasia without lower urinary tract symptoms; K59.00 Constipation, unspecified; K22.70 Barrett's esophagus without dysplasia; K21.9 Gastro-esophageal reflux disease without esophagitis; Z91.199 Patient's noncompliance with other medical treatment and regimen due to unspecified reason; Z79.01 Long term (current) use of anticoagulants; Z79.84 Long term (current) use of oral hypoglycemic drugs; Z79.899 Other long term (current) drug therapy; Z86.19 Personal history of other infectious and parasitic diseases; Z87.440 Personal history of urinary (tract) infections; Z87.891 Personal history of nicotine dependence
CPT/HCPCS: 36600; 71046; 71275; 74230; 80048; 80053; 82805; 82962; 83036; 83880; 84145; 85025; 87449; 87502; 87811; 92610; 92611; 93306; 94060; 94640; 94761; 96365; 96375; 97116; 97162; 97165; 97530; 99285; Q9967

== ENCOUNTER 2024-06-16 16:46 | Emergency (ER) | payer MEDICARE, BC, SELFPAY ==
[2024-06-16 16:53] VITALS: BP 118/72
--- NOTE | 2024-06-16 18:12 | ED.GENMED ---
History of Present Illness
General
Chief Complaint: Bowel Problem
Time Seen by Provider: 06/16/24 17:40
History of Present Illness
History of Present Illness:
84-year-old male with history of pulmonary fibrosis presenting to the emergency department for constipation. Patient was recently admitted to the hospital discharged on 06/10 for pneumonia. He was discharged on oxygen, reports that he has been
recovering well. However, has issues with chronic patient, takes MiraLAX daily. His had been giving him whey protein shakes for nutrition, and realized that they were constipating him. Patient has not had a bowel movement for 4 days. Prior
to arrival, they tried a suppository and patient had significant straining and pain while trying to defecate. Denies associate abdominal pain or vomiting. Denies any chest pain or difficulty breathing. Denies blood per rectum. Denies additional
acute medical complaints
Past History
Past History
ED Past Medical History: Arrthythmia (Atrial fibrillation), HTN, Hypercholesterolemia and NIDDM
ED Past Surgical History: Other (Ablation for A. fib)
Social History
Tobacco: Non-smoker
Alcohol: None
Drug: None
Personal:
Phy Exam
Physical Exam
Physical Exam:
General: Well-appearing, no clinical signs of dehydration, nontoxic and in no acute distress
HEENT: protecting airway
Neck: appears supple
CV: Normal heart rate
Resp: No accessory muscle use, no increased work of breathing, lungs clear to auscultation
Abd: Soft and non-distended, no tenderness to palpation
Extremities: No deformities, no swelling
Neuro: alert, no focal neurologic deficit
: deferred
Rectal: deferred
Psych: Normal affect
Skin: Intact
Course
Orders/Labs/Results
Orders:
Orders
06/16/24 18:09
Enema- Treatment ONCE
Type: Milk of Molasses
Vital Signs
Initial and Last Documented VS:
Initial Vital Signs
Temp Pulse Resp BP Pulse Ox
97.5 F 92 18 118/72 97
06/16/24 16:53 06/16/24 16:53 06/16/24 16:53 06/16/24 16:53 06/16/24 16:53
Last Documented Vital Signs
Temp Pulse Resp BP Pulse Ox
97.5 F 92 18 118/72 97
06/16/24 16:53 06/16/24 16:53 06/16/24 16:53 06/16/24 16:53 06/16/24 16:53
MDM/Problems Addressed
MDM/Problems Addressed:
84-year-old male presenting to the emergency department for constipation. Vital signs on arrival are normal.
On exam, patient is well-appearing, no acute distress or discomfort. Benign abdominal exam, soft and nondistended. Patient denies any vomiting. No tenderness to palpation. Without present concern for obstruction. Patient notes when he arrived
to the hospital, he had a large bowel movement and is feeling better. Rectal exam performed, no stool in rectal vault, without concern for impaction. Patient offered an enema for any residual stool, which he would like to proceed with. Otherwise
feel stable for discharge with continued outpatient supportive therapy. Return precautions discussed and patient verbalized understanding
*Critical Care Note
Total Time (30-74mins, 75-104mins- exclusive of procedures): Not Applicable
ED Attending Note
-
Portions of this chart may have been created with voice recognition software.� Occasional wrong word or��sound alike� substitutions may have occurred due to the inherent limitations of voice recognition software.
Discharge Plan
Departure
Prescriptions:
No Action
trazodone 50 mg Tablet
50 mg PO HS
metformin 500 mg Tablet
500 mg PO BID
acetaminophen [Tylenol] 325 mg Tablet
650 mg PO QIDPRN PRN (Reason: fever)
prednisone 10 mg Tablet
12.5 mg PO DAILY
polyethylene glycol 3350 [Miralax] 17 gram Powder In Packet
17 g PO DAILYPRN PRN (Reason: constipation)
pravastatin 40 mg Tablet
40 mg PO HS
famotidine [Pepcid] 40 mg Tablet
40 mg PO HS
omeprazole 40 mg Capsule,Delayed Release(Dr/Ec)
40 mg PO DAILY
tamsulosin [Flomax] 0.4 mg Capsule
0.4 mg PO DAILY
lisinopril 5 mg Tablet
5 mg PO BID
dofetilide 500 mcg Capsule
500 mcg PO BID
finasteride 5 mg Tablet
5 mg PO DAILY
cholecalciferol (vitamin D3) [Vitamin D3] 25 mcg (1,000 unit) Tablet
25 mcg PO DAILY
Xarelto 20 mg Tablet
20 mg PO QPM
guaifenesin [Mucinex] 600 mg Tablet Extended Release 12hr
600 mg PO BIDPRN PRN (Reason: cough)
prednisone 10 mg Tablet
See Rx Instructions .ROUTE .COMPLEX Qty: 60 0RF
Rx Instructions:
Take By Mouth:
50 mg daily x3 days, 40 mg daily x5 days,
30 mg daily x5 days, 20 mg daily x5 days,
then go to your home dose 12.5mg
albuterol sulfate 90 mcg/actuation Hfa Aerosol Inhaler
2 puff inhalation R Q4HPRN PRN (Reason: SOB/wheezing) Qty: 8.5 0RF
budesonide-formoterol [Symbicort] 160-4.5 mcg/actuation Hfa Aerosol Inhaler
2 puff inhalation R BID Qty: 10.2 0RF
Referrals:
Martin Carmen MD [Family Provider] -
Interventions
Interventions:
*Risk Screen - Suicide Last Done: 06/16/24 16:50
*General Assessment Last Done: 06/16/24 16:50
*ED COVID-19 Vaccine History Last Done: 06/16/24 16:50
Discharge Date and Time
Print Language: ZAMBIAN
[2024-06-16 18:36] VITALS: BP 116/82
== END 2024-06-16 19:50 | disposition home or self-care (01) ==
LOC: EMR 16:46
PROVIDERS: EMERGENCY PHYSICIAN Student in an Organized Health Care Education/Training Program; FAMILY PHYSICIAN Family Medicine
DX: K59.00 Constipation, unspecified (principal); E11.9 Type 2 diabetes mellitus without complications; E78.00 Pure hypercholesterolemia, unspecified; I10 Essential (primary) hypertension; I48.91 Unspecified atrial fibrillation
CPT/HCPCS: 99283

== ENCOUNTER 2024-08-15 10:55 | Emergency (ER) | payer BC, SELFPAY ==
[2024-08-15 11:03] VITALS: BP 146/82
--- NOTE | 2024-08-15 11:19 | ED.GENMED ---
History of Present Illness
General
Chief Complaint: Heart Rate Problem
Time Seen by Provider: 08/15/24 11:18
History of Present Illness
History of Present Illness:
TIME OF INITIAL ENCOUNTER: 11:20 AM
HPI: Patient was concerned because his heart rate was elevated on his monitor earlier today. He has a history of atrial fibrillation. The heart rate was as high as 160s earlier today.
peritoneal signs, no tenderness
EXAM:
GENERAL: Well appearing in no distress, wearing nasal cannula
HEENT: Moist oral mucosa
CARDIOVASCULAR: No murmurs, borderline tachycardic heart rate, regular rhythm, No chest wall tenderness
PULMONARY: No respiratory distress, breath sounds are clear and equal
ABDOMEN: Soft with no peritoneal signs, no tenderness
NEUROLOGIC: Good strength all extremities, no coordination deficits
PSYCHIATRIC: Appropriate mental status, normal insight and judgement
EXTREMITIES: Nontender, no edema, moves all extremities equally
SKIN: No rash, no lesions
NUMBER AND COMPLEXITY OF PROBLEMS ADDRESSED AT THE ENCOUNTER
� Chronic conditions affecting care: Atrial fibrillation, high blood pressure, emphysema, BPH, diabetes, iron deficiency anemia
� Acute Exacerbation and/or Progression of Chronic Illness:
� Differential Diagnosis includes:
AMOUNT AND/OR COMPLEXITY OF DATA TO BE REVIEWED AND ANALYZED
� I performed an independent evaluation of and my interpretation is:
EKG: Sinus 94, nonspecific ST abnormality
CT:
X-rays:
Laboratory Studies: White count 10.5, hemoglobin 13.0, chemistries unremarkable with exception of glucose of 165
Other:
� Review of other/old records: The patient was admitted here with acute hypoxemic respiratory failure
� Clinical information was obtained by an independent historian: I spoke to family at bedside
� Prescriptions/Medications Considered but not given:
� Further testing considered but not performed:
RISK OF COMPLICATIONS AND/OR MORBIDITY OR MORTALITY OF PATIENT MANAGEMENT
� Social determinants of health affecting care: Lives at home
� Discussion with other providers:
� Escalation of care including admission/observation vs risk of discharge considered:
ANY OTHER UPDATES:
1:40 PM: I reassessed patient, remained sinus in the 70s. Family member notes that he does desat while off oxygen with exertion in the room, however patient does have oxygen at home, room air sat on reassessment is 95%.
Past History
Past History
ED Past Medical History: Arrthythmia (Atrial fibrillation), HTN, Hypercholesterolemia and NIDDM
ED Past Surgical History: Other (Ablation for A. fib)
Social History
Tobacco: Non-smoker
Alcohol: None
Drug: None
Personal:
Phy Exam
Physical Exam
Physical Exam:
See HPI
Course
Orders/Labs/Results
Orders:
Orders
08/15/24 10:56
Electrocardiogram (*1) Urgent
Reason for Study: Chest Pain
EKG- Treatment ONCE
08/15/24 11:12
CMP [Comprehensive Metabolic Panel] Urgent
Complete Blood Count/With Diff Urgent
Abnormal Lab Results
08/15/24
11:12
RBC 4.29 L 10^6/uL
(4.70-6.10)
MCV 95.8 H fL
(80.0-94.0)
MCHC 31.6 L g/dL
(33.0-37.0)
RDW 15.3 H %
(11.5-14.5)
Abs Immat Gran (auto) 0.1 H 10^3/uL
(0-0.05)
Absolute Neuts (auto) 7.8 H 10^3/uL
(1.4-6.5)
Absolute Monos (auto) 0.8 H 10^3/uL
(0.1-0.6)
Immature Gran % 0.6 H %
(0-0.5)
Lymphocytes % 15.9 L %
(20.5-51.1)
BUN 27 H mg/dl
(9-20)
Glucose 165 H mg/dl
(70-99)
Total Protein 6.0 L g/dl
(6.3-8.2)
08/15/24 11:12
08/15/24 11:12
Vital Signs
Initial and Last Documented VS:
Initial Vital Signs
Temp Pulse Resp BP Pulse Ox
98.2 F 105 18 146/82 96
08/15/24 11:03 08/15/24 11:03 08/15/24 11:03 08/15/24 11:03 08/15/24 11:03
Last Documented Vital Signs
Temp Pulse Resp BP Pulse Ox
98.2 F 85 18 146/82 95
08/15/24 11:03 08/15/24 12:00 08/15/24 11:47 08/15/24 11:03 08/15/24 11:47
*Critical Care Note
Total Time (30-74mins, 75-104mins- exclusive of procedures): Not Applicable
ED Attending Note
-
Portions of this chart may have been created with voice recognition software.� Occasional wrong word or��sound alike� substitutions may have occurred due to the inherent limitations of voice recognition software.
Discharge Plan
Departure
Prescriptions:
No Action
trazodone 50 mg Tablet
50 mg PO HS
metformin 500 mg Tablet
500 mg PO BID
acetaminophen [Tylenol] 325 mg Tablet
650 mg PO QIDPRN PRN (Reason: fever)
prednisone 10 mg Tablet
12.5 mg PO DAILY
polyethylene glycol 3350 [Miralax] 17 gram Powder In Packet
17 g PO DAILYPRN PRN (Reason: constipation)
pravastatin 40 mg Tablet
40 mg PO HS
famotidine [Pepcid] 40 mg Tablet
40 mg PO HS
omeprazole 40 mg Capsule,Delayed Release(Dr/Ec)
40 mg PO DAILY
tamsulosin [Flomax] 0.4 mg Capsule
0.4 mg PO DAILY
lisinopril 5 mg Tablet
5 mg PO BID
dofetilide 500 mcg Capsule
500 mcg PO BID
finasteride 5 mg Tablet
5 mg PO DAILY
cholecalciferol (vitamin D3) [Vitamin D3] 25 mcg (1,000 unit) Tablet
25 mcg PO DAILY
Xarelto 20 mg Tablet
20 mg PO QPM
guaifenesin [Mucinex] 600 mg Tablet Extended Release 12hr
600 mg PO BIDPRN PRN (Reason: cough)
prednisone 10 mg Tablet
See Rx Instructions .ROUTE .COMPLEX Qty: 60 0RF
Rx Instructions:
Take By Mouth:
50 mg daily x3 days, 40 mg daily x5 days,
30 mg daily x5 days, 20 mg daily x5 days,
then go to your home dose 12.5mg
albuterol sulfate 90 mcg/actuation Hfa Aerosol Inhaler
2 puff inhalation R Q4HPRN PRN (Reason: SOB/wheezing) Qty: 8.5 0RF
budesonide-formoterol [Symbicort] 160-4.5 mcg/actuation Hfa Aerosol Inhaler
2 puff inhalation R BID Qty: 10.2 0RF
Referrals:
Martin Carmen MD [Family Provider] -
Interventions
Interventions:
*Risk Screen - Suicide Last Done: 08/15/24 11:03
*General Assessment Last Done: 08/15/24 11:03
*Neglect/Abuse Screening Last Done: 08/15/24 11:49
*ED COVID-19 Vaccine History Last Done: 08/15/24 11:03
Discharge Date and Time
Print Language: CHILEAN
[2024-08-15 11:24] LABS: % Basophils 0.4 % (0-2); % Eosinophils 1.9 % (0-6); % Immature Granulocytes 0.6 % (0-0.5); % Lymphocytes 15.9 % (20.5-51.1); % Monocytes 7.2 % (1.7-9.3); Absolute Eosinophils 0.2 10^3/uL (0-0.7); Absolute Immature Granulocytes 0.1 10^3/uL (0-0.05); Absolute Lymphocytes 1.7 10^3/uL (1.2-3.4); Absolute Monocytes 0.8 10^3/uL (0.1-0.6); Absolute Neutrophils 7.8 10^3/uL (1.4-6.5); Hematocrit 41.1 % (39.0-52.0); Mean Corp Hgb Conc. 31.6 g/dL (33.0-37.0); Mean Corpuscular Hgb 30.3 pg (27.0-31.0); Mean Corpuscular Volume 95.8 fL (80.0-94.0); Mean Platelet Volume 9.1 fL (7.4-10.4); Nucleated Red Blood Cells % 0 % (-); Platelet Count 254 10^3/uL (130-400); Red Blood Cell Count 4.29 10^6/uL (4.70-6.10); Red Cell Dist. Width 15.3 % (11.5-14.5); White Blood Cell Count 10.5 10^3/uL (4.8-10.8)
[2024-08-15 11:41] VITALS: BMI 23.6
[2024-08-15 12:04] LABS: ALT (SGPT) 18 U/L (0-50); AST (SGOT) 20 U/L (17-59); Albumin 3.9 g/dl (3.5-5.0); Alkaline Phosphatase 78 U/L (38-126); Blood Urea Nitrogen 27 mg/dl (9-20); Calcium 9.6 mg/dl (8.4-10.2); Carbon Dioxide 27 mmol/L (22-30); Chloride 103 mmol/L (98-107); Estimated Creatinine Clearance 69 ml/min; Glucose 165 mg/dl (70-99); Potassium 4.7 mmol/L (3.5-5.1); Sodium 140 mmol/L (135-145); Total Bilirubin 0.3 mg/dl (0.2-1.3); eGFR > 60.00
[2024-08-15 14:22] VITALS: BP 112/60
== END 2024-08-15 14:23 | disposition home or self-care (01) ==
LOC: EMR 10:55
PROVIDERS: EMERGENCY PHYSICIAN Emergency Medicine; FAMILY PHYSICIAN Family Medicine
DX: I48.91 Unspecified atrial fibrillation (principal); I10 Essential (primary) hypertension; E11.9 Type 2 diabetes mellitus without complications; E78.00 Pure hypercholesterolemia, unspecified; J43.9 Emphysema, unspecified; N40.0 Benign prostatic hyperplasia without lower urinary tract symptoms
CPT/HCPCS: 99284; 80053; 85025; 93005

== ENCOUNTER → 2024-08-21 13:08 | Outpatient (REF) | payer BC, SELFPAY | LOC: HWRAD 13:08 | PROVIDERS: ATTENDING PHYSICIAN Internal Medicine Critical Care Medicine; FAMILY PHYSICIAN Physician Assistant Medical | DX: J84.9 Interstitial pulmonary disease, unspecified (principal); Z91.81 History of falling; M25.552 Pain in left hip; M54.42 Lumbago with sciatica, left side | CPT/HCPCS: 71046; 72110; 73502 ==

== ENCOUNTER → 2024-09-10 09:41 | Outpatient (REF) | payer BC, SELFPAY | LOC: RST 09:41 | PROVIDERS: ATTENDING PHYSICIAN Internal Medicine Critical Care Medicine; FAMILY PHYSICIAN Family Medicine | DX: J84.9 Interstitial pulmonary disease, unspecified (principal) | CPT/HCPCS: 74230; 92611 ==

== ENCOUNTER → 2024-09-24 13:29 | Outpatient (REF) | payer BC, SELFPAY ==
[2024-09-24 12:00] LABS: % Basophils 0.2 % (0-2); % Immature Granulocytes 0.4 % (0-0.5); % Monocytes 4.3 % (1.7-9.3); % Neutrophils 86.1 % (42.2-75.2); Absolute Eosinophils 0.1 10^3/uL (0-0.7); Absolute Immature Granulocytes 0.1 10^3/uL (0-0.05); Absolute Lymphocytes 1.1 10^3/uL (1.2-3.4); Absolute Monocytes 0.6 10^3/uL (0.1-0.6); Absolute Neutrophils 11.7 10^3/uL (1.4-6.5); Hematocrit 34.9 % (39.0-52.0); Hemoglobin 10.9 g/dL (13.0-18.0); Mean Corp Hgb Conc. 31.2 g/dL (33.0-37.0); Mean Corpuscular Hgb 28.8 pg (27.0-31.0); Mean Corpuscular Volume 92.1 fL (80.0-94.0); Mean Platelet Volume 8.8 fL (7.4-10.4); Platelet Count 322 10^3/uL (130-400); Red Blood Cell Count 3.79 10^6/uL (4.70-6.10); Red Cell Dist. Width 13.4 % (11.5-14.5); White Blood Cell Count 13.6 10^3/uL (4.8-10.8)
== END ==
LOC: OIDL 13:29
PROVIDERS: ATTENDING PHYSICIAN Registered Nurse
DX: D50.9 Iron deficiency anemia, unspecified (principal)
CPT/HCPCS: 85025

== ENCOUNTER → 2024-10-12 16:00 | Outpatient (REF) | payer BC, SELFPAY | LOC: PAVMRI 16:00 | PROVIDERS: ATTENDING PHYSICIAN Physical Medicine & Rehabilitation; FAMILY PHYSICIAN Family Medicine | DX: M53.3 Sacrococcygeal disorders, not elsewhere classified (principal) | CPT/HCPCS: 72195 ==

== ENCOUNTER → 2024-12-27 10:24 | Outpatient (REF) | payer BC, SELFPAY | LOC: HWRAD 10:24 | PROVIDERS: ATTENDING PHYSICIAN Internal Medicine Critical Care Medicine; FAMILY PHYSICIAN Family Medicine | DX: J84.9 Interstitial pulmonary disease, unspecified (principal) | CPT/HCPCS: 71250 ==

== ENCOUNTER 2025-01-22 09:00 | Outpatient (RCR) | payer BC, SELFPAY | END 2025-01-23 11:03 | disposition home or self-care (01) | LOC: PURB 09:00 | PROVIDERS: ATTENDING PHYSICIAN Internal Medicine Critical Care Medicine; FAMILY PHYSICIAN Family Medicine | DX: J84.9 Interstitial pulmonary disease, unspecified (principal) | CPT/HCPCS: G0237 ==

== ENCOUNTER 2025-02-21 08:15 | Outpatient (RCR) | payer BC, SELFPAY | END 2025-02-22 10:40 | disposition home or self-care (01) | LOC: PURB 08:15 | PROVIDERS: ATTENDING PHYSICIAN Internal Medicine Critical Care Medicine; FAMILY PHYSICIAN Family Medicine | DX: J84.9 Interstitial pulmonary disease, unspecified (principal) | CPT/HCPCS: G0239 ==

== ENCOUNTER 2025-03-06 09:22 | Emergency (ER) | payer BC, SELFPAY ==
[2025-03-06 09:30] VITALS: BP 171/75
[2025-03-06 09:51] VITALS: BP 172/67
[2025-03-06 10:00] VITALS: BP 183/72
[2025-03-06 10:33] VITALS: BMI 24.2
[2025-03-06 10:57] LABS: % Basophils 0.4 % (0-2); % Eosinophils 1.7 % (0-6); % Immature Granulocytes 0.4 % (0-0.5); % Lymphocytes 13.6 % (20.5-51.1); % Monocytes 7.4 % (1.7-9.3); % Neutrophils 76.5 % (42.2-75.2); Absolute Eosinophils 0.1 10^3/uL (0-0.7); Absolute Lymphocytes 1.1 10^3/uL (1.2-3.4); Absolute Monocytes 0.6 10^3/uL (0.1-0.6); Absolute Neutrophils 6.4 10^3/uL (1.4-6.5); Hematocrit 41.6 % (39.0-52.0); Hemoglobin 13.3 g/dL (13.0-18.0); Mean Corpuscular Hgb 28.5 pg (27.0-31.0); Mean Corpuscular Volume 89.3 fL (80.0-94.0); Mean Platelet Volume 9.5 fL (7.4-10.4); Nucleated Red Blood Cells % 0 % (-); Platelet Count 241 10^3/uL (130-400); Red Blood Cell Count 4.66 10^6/uL (4.70-6.10); Red Cell Dist. Width 14.2 % (11.5-14.5); White Blood Cell Count 8.4 10^3/uL (4.8-10.8)
[2025-03-06 11:18] LABS: ALT (SGPT) 15 U/L (0-50); AST (SGOT) 20 U/L (17-59); Albumin 3.7 g/dl (3.5-5.0); Alkaline Phosphatase 51 U/L (38-126); Blood Urea Nitrogen 23 mg/dl (9-20); Calcium 9.2 mg/dl (8.4-10.2); Carbon Dioxide 32 mmol/L (22-30); Chloride 104 mmol/L (98-107); Estimated Creatinine Clearance 63 ml/min; Glucose 172 mg/dl (70-99); Potassium 4.5 mmol/L (3.5-5.1); Sodium 137 mmol/L (135-145); Total Bilirubin 0.9 mg/dl (0.2-1.3); Total Protein 5.8 g/dl (6.3-8.2); eGFR > 60.00
--- NOTE | 2025-03-06 11:29 | ED.GENMED ---
History of Present Illness
General
Chief Complaint: Blood Pressure Problem
Time Seen by Provider: 03/06/25 09:40
History of Present Illness
History of Present Illness:
Note:
CHIEF COMPLAINT(S)
Lightheadedness and elevated blood pressure.
HISTORY OF PRESENT ILLNESS
The patient is an 84-year-old male who presents with a sensation of lightheadedness and a feeling vane to nearly passing out. His spouse noticed he appeared very pale with these episodes, especially upon standing. The patient reported no chest pain,
difficulty breathing, or headaches, and he is currently symptom-free while seated. The spouse noted elevated blood pressure readings at home, with measurements of 175/97 mmHg, 195/100 mmHg, and 197/93 mmHg. There is a history of chronic low iron and
hemoglobin levels, previously managed with infusions every three months until discontinuing a medication regime thought to be a contributing factor. The patient has a history of sleep apnea symptoms, not consistently using devices. There have been
recent fluctuations with blood pressure management, specifically with Lisinopril 5 mg, taken twice daily. Blood pressures have been observed to be elevated during pulmonary therapy sessions. The patients recent medical visits have included a
hematology office consultation, highlighting some elevated blood pressure levels.
ADDITIONAL HISTORY OBTAINED FROM SOURCES OTHER THAN THE PATIENT
Per the patients spouse, the patient was found pale and nearly fainting upon standing. The spouse also reported a history of sleep apnea and irregularities in blood pressure management.
CHRONIC MEDICAL CONDITIONS SIGNIFICANTLY AFFECTING CARE
- Low iron and hemoglobin, previously treated with iron infusions.
- Suspected sleep apnea impacting blood pressure control.
MEDICATIONS
Lisinopril 5 mg taken at 8 AM and 8 PM.
REVIEW OF SYSTEMS
- Cardiovascular: Elevated blood pressure readings noted.
- Respiratory: History of sleep apnea.
- Neurological: Lightheadedness, no headaches.
- Hematologic: History of low hemoglobin levels, iron infusions every three months.
- General: Reports pale appearance during episodes of lightheadedness.
PHYSICAL EXAM
- Nursing notes reviewed and vital signs reviewed.
- Neurological: Cranial nerves two to twelve intact. Moving all extremities
- Cardiovascular: Regular heart rate and rhythm with no murmurs.
- Respiratory: Lung best clear to auscultation.
- Musculoskeletal: No signs of lower extremity edema, extremities moving freely.
PROBLEM LIST
Acute Problems:
- Lightheadedness.
- Elevated blood pressure.
Chronic Problems:
- Suspected sleep apnea impacting cardiovascular health.
- History of low iron levels.
PLAN
- Obtain blood work to evaluate electrolyte levels and other common causes for lightheadedness.
- Pull external records from recent hematology and pulmonary therapy visits for blood pressure trends.
- Verify and possibly adjust blood pressure medication dosing based on findings.
DIFFERENTIAL DIAGNOSIS
The Differential Diagnosis includes, in no particular order and is not limited to:
- Orthostatic hypotension
- Sleep apnea
- Primary hypertension
- Dehydration
- Anemia
- Cardiac arrhythmia
- Medication side effect (Lisinopril)
- Electrolyte imbalance
- Syncope
- Anxiety-related symptoms
Disposition:
SUMMARY OF ENCOUNTER
An 84-year-old male presented with a brief episode of lightheadedness. He reported no chest pain or palpitations during this episode and was noted to be hypertensive, as indicated by his family. At the time of evaluation, the patient was overall
well with no active complaints. He was hypertensive without any chest pain or shortness of breath.
INDEPENDENT INTERPRETATION OF TESTS
- My independent interpretation of the CBC is normal.
- My independent interpretation of the CMP is normal.
- My independent interpretation of the EKG shows a normal sinus rhythm with no ischemic changes.
PLAN
The patients Lisinopril morning dose will be increased from 5 mg to 10 mg to manage his hypertension. He will need to follow up with his primary care physician to discuss further management steps.
FOLLOW-UP INSTRUCTIONS
Please call the office immediately to schedule a follow-up visit with your primary care physician.
MEDICATION RECONCILIATION
- Increase Lisinopril to 10 mg in the morning.
MEDICAL DECISION MAKING
The patient presented with acute symptoms of lightheadedness and chronic concerns of hypertension. The necessary tests, including CBC, CMP, and EKG, were conducted and interpreted, confirming normal findings and leading to an adjustment in blood
pressure medication. The decision to increase Lisinopril dosage was based on the intermittent hypertension and higher normal blood pressures. The patient and family were informed of these changes and understand the plan to follow up with the primary
care physician for continuous management.
Past History
Past History
ED Past Medical History: Arrthythmia (Atrial fibrillation), HTN, Hypercholesterolemia and NIDDM
ED Past Surgical History: Other (Ablation for A. fib)
Social History
Tobacco: Non-smoker
Alcohol: None
Drug: None
Personal:
Phy Exam
Physical Exam
Physical Exam:
.
Course
Orders/Labs/Results
Orders:
Orders
03/06/25 09:25
ECG [Electrocardiogram (*1)] Urgent
Reason for Study: Other
Other Reason for Exam: feels like he will passs out
EKG- Treatment ONCE
03/06/25 10:36
Complete Blood Count/With Diff Urgent
Comprehensive Metabolic Panel Urgent
Abnormal Lab Results
03/06/25
10:36
RBC 4.66 L 10^6/uL
(4.70-6.10)
MCHC 32.0 L g/dL
(33.0-37.0)
Absolute Lymphs (auto) 1.1 L 10^3/uL
(1.2-3.4)
Neutrophils % 76.5 H %
(42.2-75.2)
Lymphocytes % 13.6 L %
(20.5-51.1)
Carbon Dioxide 32 H mmol/L
(22-30)
BUN 23 H mg/dl
(9-20)
Glucose 172 H mg/dl
(70-99)
Total Protein 5.8 L g/dl
(6.3-8.2)
03/06/25 10:36
03/06/25 10:36
Vital Signs
Initial and Last Documented VS:
Initial Vital Signs
Temp Pulse Resp BP Pulse Ox
97.8 F 67 18 171/75 98
03/06/25 09:30 03/06/25 09:30 03/06/25 09:30 03/06/25 09:30 03/06/25 09:30
Last Documented Vital Signs
Temp Pulse Resp BP Pulse Ox
97.8 F 64 23 183/72 98
03/06/25 09:30 03/06/25 10:30 03/06/25 10:30 03/06/25 10:00 03/06/25 10:37
*Pulse Oximetry
Patient hypoxic: no
Comment: 98%
*Critical Care Note
Total Time (30-74mins, 75-104mins- exclusive of procedures): Not Applicable
ED Attending Note
-
Portions of this chart may have been created with voice recognition software.� Occasional wrong word or��sound alike� substitutions may have occurred due to the inherent limitations of voice recognition software.
Discharge Plan
Departure
Patient Disposition: Home (Routine Discharge)
Date of Disposition: 03/06/25
Time of Disposition: 11:29
Patient with high blood pressure during this ER visit?: Yes
Discharge Problem:
Lightheadedness
Instructions: High Blood Pressure (DC)
Prescriptions:
No Action
trazodone 50 mg Tablet
50 mg PO HS
metformin 500 mg Tablet
500 mg PO BID
acetaminophen [Tylenol] 325 mg Tablet
650 mg PO QIDPRN PRN (Reason: fever)
prednisone 10 mg Tablet
12.5 mg PO DAILY
polyethylene glycol 3350 [Miralax] 17 gram Powder In Packet
17 g PO DAILYPRN PRN (Reason: constipation)
pravastatin 40 mg Tablet
40 mg PO HS
famotidine [Pepcid] 40 mg Tablet
40 mg PO HS
omeprazole 40 mg Capsule,Delayed Release(Dr/Ec)
40 mg PO DAILY
tamsulosin [Flomax] 0.4 mg Capsule
0.4 mg PO DAILY
lisinopril 5 mg Tablet
5 mg PO BID
dofetilide 500 mcg Capsule
500 mcg PO BID
finasteride 5 mg Tablet
5 mg PO DAILY
cholecalciferol (vitamin D3) [Vitamin D3] 25 mcg (1,000 unit) Tablet
25 mcg PO DAILY
Xarelto 20 mg Tablet
20 mg PO QPM
guaifenesin [Mucinex] 600 mg Tablet Extended Release 12hr
600 mg PO BIDPRN PRN (Reason: cough)
prednisone 10 mg Tablet
See Rx Instructions .ROUTE .COMPLEX Qty: 60 0RF
Rx Instructions:
Take By Mouth:
50 mg daily x3 days, 40 mg daily x5 days,
30 mg daily x5 days, 20 mg daily x5 days,
then go to your home dose 12.5mg
albuterol sulfate 90 mcg/actuation Hfa Aerosol Inhaler
2 puff inhalation R Q4HPRN PRN (Reason: SOB/wheezing) Qty: 8.5 0RF
budesonide-formoterol [Symbicort] 160-4.5 mcg/actuation Hfa Aerosol Inhaler
2 puff inhalation R BID Qty: 10.2 0RF
Referrals:
Martin Carmen MD [Family Provider, Family Practice]
Activity Restrictions/Additional Instructions:
Increase your morning dose of lisinopril to 10 mg and keep the 5 mg dose at nighttime
Follow-up with your primary care physician to discuss next steps of blood pressure management
Interventions
Interventions:
*Risk Screen - Suicide Last Done: 03/06/25 10:33
*General Assessment Last Done: 03/06/25 09:31
*Neglect/Abuse Screening Last Done: 03/06/25 10:33
*ED- Fall Risk Assessment Last Done: 03/06/25 11:50
*ED COVID-19 Vaccine History Last Done: 03/06/25 09:31
*Nursing Disposition Last Done: 03/06/25 11:50
ED- Cardiac Assessment Last Done: 03/06/25 10:37
ED- Neurological Assessment Last Done: 03/06/25 10:37
ED- Pulmonary Assessment Last Done: 03/06/25 10:37
Discharge Date and Time
Discharge Date/Time: 03/06/25 11:50
Print Language: TRISTANIAN
== END 2025-03-06 11:50 | disposition home or self-care (01) ==
LOC: EMR 09:22
PROVIDERS: Physician Assistant; EMERGENCY PHYSICIAN Student in an Organized Health Care Education/Training Program; FAMILY PHYSICIAN Family Medicine; OTHER PHYSICIAN Internal Medicine Interventional Cardiology
DX: R42 Dizziness and giddiness (principal); G47.30 Sleep apnea, unspecified; I10 Essential (primary) hypertension; E78.00 Pure hypercholesterolemia, unspecified; E11.9 Type 2 diabetes mellitus without complications; I48.91 Unspecified atrial fibrillation
CPT/HCPCS: 99283; 80053; 85025; 93005

== ENCOUNTER 2025-03-21 09:30 | Outpatient (RCR) | payer BC, SELFPAY | END 2025-03-25 09:38 | disposition home or self-care (01) | LOC: PURB 09:30 | PROVIDERS: ATTENDING PHYSICIAN Internal Medicine Critical Care Medicine; FAMILY PHYSICIAN Family Medicine | DX: J84.9 Interstitial pulmonary disease, unspecified (principal) | CPT/HCPCS: G0239 ==

== ENCOUNTER 2025-04-16 09:30 | Outpatient (RCR) | payer BC, SELFPAY | END 2025-04-16 23:59 | disposition home or self-care (01) | LOC: PURB 09:30 | PROVIDERS: ATTENDING PHYSICIAN Internal Medicine Critical Care Medicine; FAMILY PHYSICIAN Family Medicine | DX: J84.9 Interstitial pulmonary disease, unspecified (principal); G47.33 Obstructive sleep apnea (adult) (pediatric); R06.02 Shortness of breath; J43.2 Centrilobular emphysema; Z87.891 Personal history of nicotine dependence | CPT/HCPCS: G0239 ==

== ENCOUNTER → 2025-05-16 07:01 | Outpatient (REF) | payer BC, SELFPAY | LOC: DHSLP 07:01 | PROVIDERS: ATTENDING PHYSICIAN Internal Medicine Critical Care Medicine; FAMILY PHYSICIAN Family Medicine | DX: G47.33 Obstructive sleep apnea (adult) (pediatric) (principal) | CPT/HCPCS: 95800 ==

== ENCOUNTER → 2025-09-13 14:12 | Outpatient (REF) | payer BC, SELFPAY | LOC: HWRAD 14:12 | PROVIDERS: ATTENDING PHYSICIAN Urology; FAMILY PHYSICIAN Family Medicine | DX: N40.0 Benign prostatic hyperplasia without lower urinary tract symptoms (principal); R35.0 Frequency of micturition | CPT/HCPCS: 76770 ==